=== PATIENT | female | born 1990 | race Caucasian/White ===

== ENCOUNTER 2016-06-08 10:13 | Emergency (ER) | payer SELFPAY ==
[2016-06-08 10:37] VITALS: BP 115/84
--- NOTE | 2016-06-08 11:07 | UC ---
Concha Alas Anna, [facility] on 06/08/16 at 1054 . Cardiac HPI - HPI Summary HPI Summary: MD Note Vital signs stable Temp 99. Pulse ox 97. 6/10 chest discomfort. Rare alcohol former smoker. Visit review reveals no heart disease and intermittent evaluation for chest congestion. Pt is on no prescription medications. EKG NSR at 76 bpm without ischemia at 1021. Nurses Note "low grade" fever for past couple weeks, temp was high yesterday. sunday had pressure at base of throat, along with sob. woke up this morning with pain in chest, pain is worse with deep breath or cough. pt states has noticed for past couple wks that she is urinating more frequently even though fluid intake hasn't increased. denies urinary symptoms. In Room Note Patient is a 25 y/o female coming to [facility] [place] presenting with gradual onset of constant, dull CHEST DISCOMFORT that began this morning. The pain does not radiate anywhere, including her jaw or arm. The pain is exacerbated by coughing or deep breaths. She additionally feels SOB and has had an intermittent COUGH, FEVER, and DIAPHORESIS that began four days ago. The symptoms were not alleviated by the use of Mucinex. Her history is significant for GERD, but her current pain is different. Denies n/v/d, abd pain, leg pain. Denies Hx of asthma , blood clots, DVT, PE, or recent travel. She quit smoking two months ago. She was previously smoking 4 cigarettes a day, and PPD for a year before that. Onset: gradual Palliative/Provocative: chest pain Quality: dull Region: left side of sternum Severity: 09/16 Time: constant Associated Sx: cough, SOB Home Rx: Mucinex - History of Current Complaint Chief Complaint: UCChestPain Stated Complaint: CHEST PAIN,SOB Hx Obtained From: Patient, Family/Non Profit Job Titles - accompanied by girlfriend - Allergy/Home Medications Allergies/Adverse Reactions: Allergies Allergy/AdvReac Type Severity Reaction Status Date / Time No Known Allergies Allergy Verified 04/06/16 16:09 Home Medications: Home Medications guaiFENesin ER TAB [Mucinex*] 06/08/16 [History] PMH/Surg Hx/FS Hx/Imm Hx Endocrine History Of: Denies: Diabetes - pre-, Thyroid Disease Cardiovascular History Of: Denies: Cardiac Disorders, Hypertension, Pacemaker/ICD, Myocardial Infarction , Congestive Heart Failure, Atrial Fibrillation, Deep Vein Thrombosis, Bleeding Disorders Respiratory History Of: Denies: COPD, Asthma GI/ History Of: Reports: Gastroesophageal Reflux Denies: Ulcer, Gastrointestinal Bleed, Gall Bladder Disease, Kidney Stones, Diverticulitis, Renal Disease, Urosepsis Neurological History Of: Denies: TIA, CVA, Dementia, Seizures, Migraine Psychological History Of: Denies: Anxiety, Depression, Bipolar Disorder, Schizophrenia, Post Traumatic Stress Disorder Cancer History Of: Denies: Lung Cancer, Colorectal Cancer, Breast Cancer, Prostate Cancer, Cervical Cancer Other History Of: Negative For: HIV, Hepatitis B, Hepatitis C - Surgical History Surgical History: None - Family History Known Family History: Negative: Cardiac Disease, Hypertension, Diabetes - Social History Alcohol Use: Rare Substance Use Type: None Smoking Status (MU): Former Smoker Type: Cigarettes When Did the Patient Quit Smoking/Using Tobacco: 04/02/16 Review of Systems Constitutional: Fever, Other - diaphoresis Skin: Negative Eyes: Negative ENT: Negative Respiratory: Shortness Of Breath, Cough Cardiovascular: Chest Pain Gastrointestinal: Negative Genitourinary: Negative Motor: Negative Neurovascular: Negative Musculoskeletal: Negative Neurological: Negative Psychological: Negative All Other Systems Reviewed And Are Negative: Yes Physical Exam Triage Information Reviewed: Yes Appearance: Well-Appearing, No Pain Distress, Well-Nourished Vital Signs: Initial Vital Signs Temp 99.0 F 06/08/16 10:30 Pulse 77 06/08/16 10:30 Resp 18 06/08/16 10:30 BP 115/84 06/08/16 10:30 Pulse Ox 97 06/08/16 10:30 Vital Signs Reviewed: Yes Eyes: Positive: Conjunctiva Clear ENT: Positive: Hearing grossly normal, Pharynx normal, TMs normal. Negative: Muffled/hoarse voice Neck: Positive: Supple, No Lymphadenopathy Respiratory: Positive: Lungs clear, Normal breath sounds, No respiratory distress, Other: - Mild tenderness to right sternal margin and tenderness of left margin of the sternum greater than the right.. Negative: Chest non-tender Cardiovascular: Positive: RRR, No Murmur, Other: - S1, S2. Negative: Tachycardia Abdomen Description: Positive: Nontender, No Organomegaly, Soft Bowel Sounds: Positive: Present Musculoskeletal: Positive: Strength Intact, No Edema, Other: - MARTINEZ. No swelling or redness of calves. No tendernress. Neurological: Positive: Alert Psychological: Positive: Age Appropriate Behavior Skin: Negative: rashes Diagnostics - EKG Cardiac Rate: NL - 76 bpm Ectopy: None ST Segment: Normal - Assessment/Plan Course Of Treatment: Patient appeared comfortable on physical exam, not SOB or tachycardic. Most consistent with costochondritis. No Hx that would suggest PE or cardiovascular problem. Discussed this diagnosis with the patient and her partner and they voiced understanding and agreement. She was given a one day work note. - Clinical Impression Provider Diagnoses: costochondritis Discharge - Discharge Plan Condition: Stable Disposition: HOME Prescriptions: Ibuprofen TAB* [Motrin TAB* 800 MG] 600 mg PO Q8HR #14 tab Meds/Orders/Equipment: 12 Lead EKG Location: Determined By Patient Patient Education Materials: Costochondritis (ED) Referrals: Kourtney Devlin MD [Primary Care Provider] - Additional Instructions: WE DISCUSSED: You have inflammation of the joints around the sternum. Your EKG was normal. TAKe ibuprofen one pill, four times a day for the next 2 days. THen 2-3 times a day, as needed. Warm moist heat to the area. Go to ED for increased chest pain, new symptoms or shortness of breath. The documentation as recorded by the Concha mcgowan Anna accurately reflects the service I personally performed and the decisions made by , Stephen Self MD.
== END 2016-06-08 11:21 | disposition home or self-care (01) ==
LOC: UCEAST 10:13
DX: M94.0 Chondrocostal junction syndrome [Tietze] (principal); Z87.891 Personal history of nicotine dependence
CPT/HCPCS: 93005; 99212; G0463

== ENCOUNTER 2016-06-10 21:36 | Emergency (ER) | payer SELFPAY ==
--- NOTE | 2016-06-10 22:51 | ED ---
Jose Miguel Alas SooYoung, scribed for Stephen Carey MD on 06/10/16 at 2241 . HPI Chest Pain - HPI Summary HPI Summary: A 25 y/o F presents with worsening CP onset two days ago. Associated sx: SOB. Aggravating factors: deep breaths. She's taken Ibuprofen 800mg two or three times yesterday, and twice today with no relief. - History of Current Complaint Chief Complaint: EDChestWallPain Time Seen by Provider: 06/10/16 22:34 Hx Obtained From: Patient Onset/Duration: Started Days Ago, Still Present Timing: Constant Current Severity: Moderate Pain Intensity: 7 Pain Scale Used: 0-10 Numeric Aggravating Factor(s): Deep Breaths Associated Signs and Symptoms: Positive: Shortness of Breath - Allergy/Home Medications Allergies/Adverse Reactions: Allergies Allergy/AdvReac Type Severity Reaction Status Date / Time No Known Allergies Allergy Verified 04/06/16 16:09 PMH/Surg Hx/FS Hx/Imm Hx Previously Healthy: Yes Endocrine/Hematology History: Denies: Hx Diabetes - pre-, Hx Thyroid Disease Cardiovascular History: Denies: Hx Congestive Heart Failure, Hx Deep Vein Thrombosis, Hx Hypertension , Hx Myocardial Infarction, Hx Pacemaker/ICD Respiratory History: Denies: Hx Asthma, Hx Chronic Obstructive Pulmonary Disease (COPD), Hx Lung Cancer GI History: Denies: Hx Gall Bladder Disease, Hx Gastrointestinal Bleed, Hx Ulcer, Hx Urosepsis History: Reports: Other Problems/Disorders - PCOS Denies: Hx Kidney Stones, Hx Renal Disease Neurological History: Denies: Hx Dementia, Hx Migraine, Hx Seizures, Hx Transient Ischemic Attacks (TIA) Psychiatric History: Denies: Hx Anxiety, Hx Depression, Hx Schizophrenia, Hx Bipolar Disorder Infectious Disease History: No Infectious Disease History: Denies: Hx Clostridium Difficile, Hx Hepatitis, Hx Human Immunodeficiency Virus (HIV), Hx of Known/Suspected MRSA, Hx Shingles, Hx Tuberculosis, Hx Known/ Suspected VRE, Hx Known/Suspected VRSA, History Other Infectious Disease, Traveled Outside the [place] in Last 30 Days - Family History Known Family History: Negative: Cardiac Disease, Hypertension, Diabetes - Social History Occupation: Employed Full-time Lives: Alone Alcohol Use: Rare Hx Substance Use: No Substance Use Type: Reports: None Hx Tobacco Use: Yes Smoking Status (MU): Former Smoker Type: Cigarettes Amount Used/How Often: >1/2 ppd on the patch now Review of Systems Positive: Chest Pain Positive: Shortness Of Breath All Other Systems Reviewed And Are Negative: Yes Physical Exam Triage Information Reviewed: Yes Vital Signs On Initial Exam: Initial Vitals Temp Pulse Resp BP Pulse Ox 99.1 F 83 16 131/64 100 06/10/16 21:44 06/10/16 21:44 06/10/16 21:44 06/10/16 21:44 06/10/16 21:44 Vital Signs Reviewed: Yes Appearance: Positive: Well-Appearing, No Pain Distress Skin: Positive: Warm Head/Face: Positive: Normal Head/Face Inspection Eyes: Positive: DIAMOND ENT: Positive: Hearing grossly normal Neck: Positive: Supple Respiratory/Lung Sounds: Positive: Clear to Auscultation, Breath Sounds Present Cardiovascular: Positive: RRR Abdomen Description: Positive: Nontender, Soft Bowel Sounds: Positive: Present Musculoskeletal: Positive: Strength/ROM Intact Neurological: Positive: Alert, Oriented to Person Place, Time Psychiatric: Positive: Affect/Mood Appropriate Diagnostics - Vital Signs Vital Signs Temp Pulse Resp BP Pulse Ox 06/10/16 21:44 99.1 F 83 16 131/64 100 - Laboratory Lab Statement: Any lab studies that have been ordered have been reviewed, and results considered in the medical decision making process. - Radiology CXR Xray Interpretation: No Acute Changes Radiology Interpretation Completed By: ED Physician - EKG 1 Cardiac Rate: NL EKG Rhythm: Sinus Rhythm EKG Interpretation: no STEMI Re-Evaluation - Re-Evaluation First Eval Change: Improved Chest Pain Course/Dx - Diagnoses Provider Diagnoses: Chest wall pain Discharge - Discharge Plan Condition: Stable Disposition: HOME Patient Education Materials: Chest Wall Pain (ED) Referrals: Kourtney Devlin MD [Primary Care Provider] - 1 Week Additional Instructions: Follow up with your doctor within the week. Please return to the ED with new or worsening symptoms. The documentation as recorded by the Jose Miguel mcgowan SooYoung accurately reflects the service I personally performed and the decisions made by me, Stephen Carey MD.
--- NOTE | 2016-06-10 23:08 | RAD ---
INDICATION: Chest pain. COMPARISON: Comparison is made with prior study from May 03, 2013. TECHNIQUE: Dual-energy PA and lateral views of the chest were obtained. FINDINGS: The heart is within normal limits in size. Mediastinal and hilar contours appear within normal limits. The lungs are clear. No pleural effusion or pneumothorax is seen. IMPRESSION: NO EVIDENCE FOR ACTIVE CARDIOPULMONARY DISEASE.
[2016-06-10 23:25] VITALS: BP 125/72
== END 2016-06-10 23:24 | disposition home or self-care (01) ==
LOC: ED 21:36
DX: R07.89 Other chest pain (principal); R06.02 Shortness of breath; Z87.891 Personal history of nicotine dependence
CPT/HCPCS: 71020; 93005; 99282

== ENCOUNTER 2016-07-04 17:51 | Emergency (ER) | payer SELFPAY ==
[2016-07-04 18:01] VITALS: BP 130/84
[2016-07-04] MEDS ORDERED: Ibuprofen TAB* 400 MG PO ONE (18:11)
--- NOTE | 2016-07-04 18:11 | UC ---
Throat Pain/Nasal Pillo HPI - HPI Summary HPI Summary: complaint of sore throat and fever that started yesterday nasal congestion mild cough intermittent headaches bilateral ear pain took some robitussin and tylenol yesterday denies muscle achiness ,denies N/V/D influenza present in her workplace - History of Current Complaint Chief Complaint: UCRespiratory Stated Complaint: SORE THROAT AND FEVER Time Seen by Provider: 07/04/16 18:04 Hx Obtained From: Patient Hx Last Menstrual Period: 06/13/16 - Allergies/Home Medications Allergies/Adverse Reactions: Allergies Allergy/AdvReac Type Severity Reaction Status Date / Time No Known Allergies Allergy Verified 04/06/16 16:09 PMH/Surg Hx/FS Hx/Imm Hx Previously Healthy: Yes Endocrine History Of: Denies: Diabetes - pre-, Thyroid Disease Cardiovascular History Of: Denies: Cardiac Disorders, Hypertension, Pacemaker/ICD, Myocardial Infarction , Congestive Heart Failure, Atrial Fibrillation, Deep Vein Thrombosis, Bleeding Disorders Respiratory History Of: Denies: COPD, Asthma GI/ History Of: Reports: Gastroesophageal Reflux Denies: Ulcer, Gastrointestinal Bleed, Gall Bladder Disease, Kidney Stones, Diverticulitis, Renal Disease, Urosepsis Neurological History Of: Denies: TIA, CVA, Dementia, Seizures, Migraine Psychological History Of: Denies: Anxiety, Depression, Bipolar Disorder, Schizophrenia, Post Traumatic Stress Disorder Cancer History Of: Denies: Lung Cancer, Colorectal Cancer, Breast Cancer, Prostate Cancer, Cervical Cancer Other History Of: Negative For: HIV, Hepatitis B, Hepatitis C - Surgical History Surgical History: None - Family History Known Family History: Negative: Cardiac Disease, Hypertension, Diabetes - Social History Occupation: Employed Full-time Lives: With Family Alcohol Use: Rare Substance Use Type: None Smoking Status (MU): Former Smoker Type: Cigarettes Amount Used/How Often: >1/2 ppd on the patch now When Did the Patient Quit Smoking/Using Tobacco: 04/02/16 Review of Systems Constitutional: Fever Skin: Negative Eyes: Negative ENT: Sore Throat, Ear Ache, Nasal Discharge Respiratory: Cough Cardiovascular: Negative Gastrointestinal: Negative Genitourinary: Negative Motor: Negative Neurovascular: Negative Musculoskeletal: Negative Neurological: Headache Psychological: Negative All Other Systems Reviewed And Are Negative: Yes Physical Exam Triage Information Reviewed: Yes Appearance: No Pain Distress, Well-Nourished Vital Signs: Initial Vital Signs Temp 99.3 F 07/04/16 17:58 Pulse 96 07/04/16 17:58 Resp 18 07/04/16 17:58 BP 130/84 07/04/16 17:58 Pulse Ox 100 07/04/16 17:58 Vital Signs Reviewed: Yes Eyes: Positive: Conjunctiva Clear ENT: Positive: Pharyngeal erythema, Nasal congestion, TMs normal, Tonsillar swelling, Tonsillar exudate Neck: Positive: No Lymphadenopathy Respiratory: Positive: Lungs clear, Normal breath sounds, No respiratory distress, No accessory muscle use Cardiovascular: Positive: RRR, No Murmur, Pulses Normal Abdomen Description: Positive: Nontender, Soft Bowel Sounds: Positive: Present Musculoskeletal Exam: Normal Neurological: Positive: Alert Psychological Exam: Normal Skin Exam: Normal Throat Pain/Nasal Course/Dx - Differential Dx/Diagnosis Differential Diagnosis/HQI/PQRI: Influenza, Tonsillitis, URI, Other - viral illness Provider Diagnoses: viral pharyngitis Discharge - Discharge Plan Condition: Stable Disposition: HOME Patient Education Materials: Pharyngitis (ED) Forms: *Work Release Referrals: Kourtney Devlin MD [Primary Care Provider] - Additional Instructions: Your blood pressure is pre-hypertensive reading. Please contact your primary care provider within 1 day -4 weeks for further evaluation. PHARYNGITIS (Sore Throat) What is Pharyngitis? The medical name for a sore throat is Pharyngitis. It is caused by an infection or irritation of your throat or tonsils. The infection can be caused by a virus or by bacteria. Not everyone with Pharyngitis needs antibiotics. Antibiotics will not make viral infections better, and they will not help a sore throat caused by irritation. Symptoms May Include: Sore throat Swelling of the glands in the neck Trouble or pain with swallowing Fever Headache Cough Extreme tiredness Ear pain Treatment Recommendations: Gargle every few hours with a solution of 1/4 teaspoon of salt dissolved in 1/ 2 cup of warm water. Drink plenty of warm beverages, like tea with lemon, (with or without honey) and soup. You may eat and drink cold foods and liquids like frozen yogurt, popsicles, and ice water if that makes your throat feel better. The goal is to keep you well hydrated. Use a "cool-mist" vaporizer or humidifier in the room where you spend most of your time. If you get a sore throat often, consider adding an electronic air filter and humidifier to your furnace system. Don't smoke. Do not eat spicy foods. Take medicine exactly as prescribed. If you do not think it is helping, call your healthcare provider. Do not increase how much or how often you take it without getting their OK first. Non-prescription anti-inflammatory medicine like ibuprofen (Motrin, Advil) or naproxen (Aleve) may help lessen the pain. You should not take these medicines if you have had bleeding in your stomach in the past. Acetaminophen ( Tylenol) is another choice of medicine that may help the pain. If pain medicine that makes you tired or sleepy or contains narcotics is prescribed, you should not drink, drive, or participate in any other activities that you need to be clear-headed for. Please keep all medicines out of the reach of children. Do not get in close contact with anyone you know who has a sore throat. Use throat lozenges (Cepostat, Bellevue, etc.) or suck on hard candy for temporary relief of the pain with swallowing. (Do not give to children under age 5.) Call Your Doctor or Return Here IF: Your symptoms do not start to get better within 2 days or you become worse. You have a fever over 101.0 F orally. You cant swallow liquids or saliva. You are drooling. You start to have trouble breathing. You start to have a rash. You start to have a stiff neck. You start to have pain in your chest. You start to have any symptoms that are new or worry you.
== END 2016-07-04 19:04 | disposition home or self-care (01) ==
LOC: UCEAST 17:51
DX: J02.8 Acute pharyngitis due to other specified organisms (principal); B97.89 Other viral agents as the cause of diseases classified elsewhere; R50.9 Fever, unspecified; K21.9 Gastro-esophageal reflux disease without esophagitis; Z87.891 Personal history of nicotine dependence
CPT/HCPCS: 87502; 87651; 99201; A9270-GY; G0463

== ENCOUNTER 2016-09-29 16:28 | Emergency (ER) | payer SELFPAY ==
[2016-09-29 16:39] VITALS: BP 116/67
--- NOTE | 2016-09-29 17:31 | ED ---
Head Injury - HPI Summary HPI Summary: 26F presents with head injury last night from a softball. A softball that was thrown struck the left side of her head. She denies any LOC. She denies any vomiting but admits to nausea. She states her headache is a 10/10 without excredin and then goes to 7/10. She admits to photophobia and blurry vision in left eye. She is not on any blood thinners. - History Of Current Complaint Chief Complaint: EDHeadInjury Stated Complaint: HIT IN HEAD W/SOFTBALL Time Seen by Provider: 09/29/16 16:45 Hx Last Menstrual Period: 06/13/16 Pain Intensity: 0 - Allergies/Home Medications Allergies/Adverse Reactions: Allergies Allergy/AdvReac Type Severity Reaction Status Date / Time No Known Allergies Allergy Verified 09/29/16 16:57 PMH/Surg Hx/FS Hx/Imm Hx Endocrine/Hematology History: Denies: Hx Diabetes - pre-, Hx Thyroid Disease Cardiovascular History: Denies: Hx Congestive Heart Failure, Hx Deep Vein Thrombosis, Hx Hypertension , Hx Myocardial Infarction, Hx Pacemaker/ICD Respiratory History: Denies: Hx Asthma, Hx Chronic Obstructive Pulmonary Disease (COPD), Hx Lung Cancer GI History: Denies: Hx Gall Bladder Disease, Hx Gastrointestinal Bleed, Hx Ulcer, Hx Urosepsis History: Reports: Other Problems/Disorders - PCOS Denies: Hx Kidney Stones, Hx Renal Disease Neurological History: Denies: Hx Dementia, Hx Migraine, Hx Seizures, Hx Transient Ischemic Attacks (TIA) Psychiatric History: Denies: Hx Anxiety, Hx Depression, Hx Schizophrenia, Hx Bipolar Disorder Infectious Disease History: No Infectious Disease History: Denies: Hx Clostridium Difficile, Hx Hepatitis, Hx Human Immunodeficiency Virus (HIV), Hx of Known/Suspected MRSA, Hx Shingles, Hx Tuberculosis, Hx Known/ Suspected VRE, Hx Known/Suspected VRSA, History Other Infectious Disease, Traveled Outside the [place] in Last 30 Days - Family History Known Family History: Negative: Cardiac Disease, Hypertension, Diabetes - Social History Alcohol Use: Rare Hx Substance Use: No Substance Use Type: Reports: None Hx Tobacco Use: Yes Smoking Status (MU): Never Smoked Tobacco Type: Cigarettes Amount Used/How Often: >1/2 ppd on the patch now Review of Systems Negative: Fever Negative: Chest Pain Negative: Shortness Of Breath Positive: Nausea. Negative: Vomiting Positive: Headache All Other Systems Reviewed And Are Negative: Yes Physical Exam Triage Information Reviewed: Yes Vital Signs On Initial Exam: Initial Vitals Temp Pulse Resp BP Pulse Ox 98.4 F 80 17 116/67 98 09/29/16 16:36 09/29/16 16:36 09/29/16 16:36 09/29/16 16:36 09/29/16 16:36 Vital Signs Reviewed: Yes Appearance: Positive: Well-Appearing Skin: Positive: Warm, Dry Head/Face: Positive: Normal Head/Face Inspection, Other - no step off, racoon eyes, rockwell sign Eyes: Positive: Normal, EOMI, DIAMOND, Conjunctiva Clear ENT: Positive: Normal ENT inspection, Pharynx normal, TMs normal Respiratory/Lung Sounds: Positive: Clear to Auscultation, Breath Sounds Present Cardiovascular: Positive: Normal, RRR Neurological: Positive: Sensory/Motor Intact, Alert, Oriented to Person Place, Time, CN Intact II-III, Heel to Toe, Finger to Nose - [place] Coma Scale Best Eye Response: 4 - Spontaneous Best Motor Response: 6 - Obeys Commands Best Verbal Response: 5 - Oriented Diagnostics - Vital Signs Vital Signs Temp Pulse Resp BP Pulse Ox 09/29/16 16:52 98.4 F 80 16 116/67 99 09/29/16 16:36 98.4 F 80 17 116/67 98 - Laboratory Lab Statement: Any lab studies that have been ordered have been reviewed, and results considered in the medical decision making process. - CT brain CT Interpretation: No Acute Changes - IMPRESSION: NEGATIVE EXAMINATION CT Interpretation Completed By: Radiologist Head Injury Course/Dx Course Of Treatment: 26F presents with head injury last night from a softball. She denies any LOC. She denies any vomiting but admits to nausea. She states her headache is a 10/10 without excredin and then goes to 7/10. normal neuro exam. discussed with patient and patient would like CT which is normal. gave zofran for nausea and told to follow up with primary. patient understands and agrees with plan - Diagnoses Differential Diagnosis/HQI/PQRI: Concussion Without LOC, Contusion, Intracranial Bleed Provider Diagnoses: Head injury Discharge - Discharge Plan Condition: Good Disposition: HOME Prescriptions: Ondansetron ODT TAB* [Zofran 4 MG Odt TAB*] 4 mg PO Q6H PRN #20 tab.odt PRN Reason: Nausea Patient Education Materials: Head Injury (ED) Referrals: Kourtney Devlin MD [Primary Care Provider] - Additional Instructions: Place ice on area as needed Take Tylenol or ibuprofen for headache every 6 hours Take zofran every 6 hours as needed for nausea Follow up with primary within 5 days Return to ED if develop any new or worsening symptoms
--- NOTE | 2016-09-29 17:36 | RAD ---
INDICATION: Intracranial injury COMPARISON: None TECHNIQUE: Noncontrast axial source images were acquired from the skull base to the vertex. FINDINGS: Ventricles/sulci: The ventricles and cisterns are normal in size and configuration for age. Brain parenchyma: There is no focal parenchymal finding, evidence of intracranial mass, or intracranial mass effect. Intracranial hemorrhage:None. Extra-axial spaces: There are no abnormal extra axial fluid collections or evidence of extra-axial mass. Calvarium: There is no calvarial fracture or other calvarial abnormality. Scalp: There is no evidence of scalp or extracalvarial soft tissue abnormality. Paranasal sinuses/mastoid: The paranasal sinuses and mastoid air cells are clear. Other: None. IMPRESSION: NEGATIVE EXAMINATION
[2016-09-29] MEDS ORDERED: Ondansetron ODT TAB* 4 MG PO ONE (17:39)
== END 2016-09-29 17:50 | disposition home or self-care (01) ==
LOC: ED 16:28
DX: S09.90XA Unspecified injury of head, initial encounter (principal); R51 Headache; R11.0 Nausea; W21.07XA Struck by softball, initial encounter; Y93.64 Activity, baseball; Y92.9 Unspecified place or not applicable; Y99.9 Unspecified external cause status
CPT/HCPCS: 70450; 99281; A9270-GY

== ENCOUNTER 2016-10-19 17:00 | Emergency (ER) | payer SELFPAY ==
[2016-10-19 18:02] LABS: Hematocrit 39 % (35-47); Hemoglobin 12.9 g/dl (12.0-16.0); Mean Corpuscular HGB Conc 33 g/dl (31-36); Mean Corpuscular Hemoglobin 28 pg (27-31); Mean Corpuscular Volume 84 fL (80-97); Mean Platelet Volume 8 um3 (7.4-10.4); Red Blood Count 4.65 10^6/ul (4.0-5.4); Red Cell Distribution Width 13 % (10.5-15); White Blood Count 14.1 10^3/ul (3.5-10.8)
[2016-10-19 18:20] LABS: ALT 19 U/L (7-52); AST 16 U/L (13-39); Albumin 4.2 g/dL (3.2-5.2); Alkaline Phosphatase 55 U/L (34-104); Anion Gap 6 mmol/L (2-11); Blood Urea Nitrogen 12 mg/dL (6-24); CO2 Carbon Dioxide 25 mmol/L (22-32); Calcium 9.6 mg/dL (8.6-10.3); Chloride 105 mmol/L (101-111); EGFR African American 113.3 (>60); EGFR Non-African American 88.1 (>60); Globulin 3.2 g/dL (2-4); Glucose 123 mg/dL (70-100); Potassium 3.9 mmol/L (3.5-5.0); Sodium 136 mmol/L (133-145); Total Protein 7.4 g/dL (6.4-8.9)
--- NOTE | 2016-10-20 00:01 | ED ---
Karri Alas Salem, scribed for Stephen Carey MD on 10/19/16 at 2135 . GI/ HPI - HPI Summary HPI Summary: Patient is a 26 y/o F who presents to the ED with bright red rectal bleeding and abd cramping. She describes episodes in which she feels like blood is pooling in her colon followed by the urge to make a BM in excretion of blood with clotting. Pt states that she does not have a PCP because she does not have insurance, but states that her last physical exam was approximately 1 year ago. Sx is not aggravated or modified with anything. - History of Current Complaint Chief Complaint: EDGIBleed Time Seen by Provider: 10/19/16 21:28 Stated Complaint: RECTAL BLEEDING Hx Obtained From: Patient Onset/Duration: Atraumatic, Still Present Timing: Intermittent Severity: Moderate Current Severity: Moderate Vaginal Bleeding Description: Bright Red Pain Intensity: 0 Location of Pain: Diffuse Pain Characteristics: Cramping Associated Signs and Symptoms: Positive: Bright Red Blood w/Stool, Blood w/Stool , Abdominal Pain Aggravating Factor(s): Nothing Alleviating Factor(s): Nothing - Allergy/Home Medications Allergies/Adverse Reactions: Allergies Allergy/AdvReac Type Severity Reaction Status Date / Time No Known Allergies Allergy Verified 09/29/16 16:57 PMH/Surg Hx/FS Hx/Imm Hx Endocrine/Hematology History: Denies: Hx Diabetes - pre-, Hx Thyroid Disease Cardiovascular History: Denies: Hx Congestive Heart Failure, Hx Deep Vein Thrombosis, Hx Hypertension , Hx Myocardial Infarction, Hx Pacemaker/ICD Respiratory History: Denies: Hx Asthma, Hx Chronic Obstructive Pulmonary Disease (COPD), Hx Lung Cancer GI History: Denies: Hx Gall Bladder Disease, Hx Gastrointestinal Bleed, Hx Ulcer, Hx Urosepsis History: Reports: Other Problems/Disorders - PCOS Denies: Hx Kidney Stones, Hx Renal Disease Neurological History: Denies: Hx Dementia, Hx Migraine, Hx Seizures, Hx Transient Ischemic Attacks (TIA) Psychiatric History: Denies: Hx Anxiety, Hx Depression, Hx Schizophrenia, Hx Bipolar Disorder Infectious Disease History: No Infectious Disease History: Denies: Hx Clostridium Difficile, Hx Hepatitis, Hx Human Immunodeficiency Virus (HIV), Hx of Known/Suspected MRSA, Hx Shingles, Hx Tuberculosis, Hx Known/ Suspected VRE, Hx Known/Suspected VRSA, History Other Infectious Disease, Traveled Outside the [place] in Last 30 Days - Family History Known Family History: Negative: Cardiac Disease, Hypertension, Diabetes - Social History Alcohol Use: Rare Hx Substance Use: No Substance Use Type: Reports: None Hx Tobacco Use: Yes Smoking Status (MU): Never Smoked Tobacco Type: Cigarettes Amount Used/How Often: >1/2 ppd on the patch now Review of Systems Negative: Fever Positive: Abdominal Pain Positive: other - Rectal bleeding. All Other Systems Reviewed And Are Negative: Yes Physical Exam Triage Information Reviewed: Yes Vital Signs On Initial Exam: Initial Vitals Temp Pulse Resp BP Pulse Ox 97.5 F 84 16 152/81 98 10/19/16 17:03 10/19/16 17:03 10/19/16 17:03 10/19/16 17:03 10/19/16 17:03 Vital Signs Reviewed: Yes Appearance: Positive: Well-Appearing, No Pain Distress Skin: Positive: Warm Head/Face: Positive: Normal Head/Face Inspection Eyes: Positive: DIAMOND ENT: Positive: Hearing grossly normal Neck: Positive: Supple, Nontender Respiratory/Lung Sounds: Positive: Breath Sounds Present Cardiovascular: Positive: RRR Abdomen Description: Positive: Nontender, Soft Bowel Sounds: Positive: Present Musculoskeletal: Positive: Strength/ROM Intact Neurological: Positive: Alert, Oriented to Person Place, Time - [place] Coma Scale Coma Scale Total: 15 Diagnostics - Vital Signs Vital Signs Temp Pulse Resp BP Pulse Ox 10/19/16 21:22 99 F 71 16 111/72 96 10/19/16 21:00 97.4 F 77 124/77 100 10/19/16 19:25 98.3 F 72 119/72 98 10/19/16 18:17 99.1 F 87 20 111/74 98 10/19/16 17:03 97.5 F 84 16 152/81 98 - Laboratory Lab Results: Lab Results 10/19/16 10/19/16 10/19/16 Range/Units 17:55 17:55 17:55 WBC 14.1 H (3.5-10.8) 10^3/ul RBC 4.65 (4.0-5.4) 10^6/ul Hgb 12.9 (12.0-16.0) g/dl Hct 39 (35-47) % MCV 84 (80-97) fL MCH 28 (27-31) pg MCHC 33 (31-36) g/dl RDW 13 (10.5-15) % Plt Count 331 (150-450) 10^3/ul MPV 8 (7.4-10.4) um3 INR (Anticoag Therapy) 0.96 (0.89-1.11) Sodium 136 (133-145) mmol/L Potassium 3.9 (3.5-5.0) mmol/L Chloride 105 (101-111) mmol/L Carbon Dioxide 25 (22-32) mmol/L Anion Gap 6 (2-11) mmol/L BUN 12 (6-24) mg/dL Creatinine 0.80 (0.51-0.95) mg/dL Est GFR ( Amer) 113.3 (>60) Est GFR (Non-Af Amer) 88.1 (>60) BUN/Creatinine Ratio 15.0 (8-20) Glucose 123 H (70-100) mg/dL Calcium 9.6 (8.6-10.3) mg/dL Total Bilirubin 0.30 (0.2-1.0) mg/dL AST 16 (13-39) U/L ALT 19 (7-52) U/L Alkaline Phosphatase 55 (34-104) U/L Total Protein 7.4 (6.4-8.9) g/dL Albumin 4.2 (3.2-5.2) g/dL Globulin 3.2 (2-4) g/dL Albumin/Globulin Ratio 1.3 (1-3) Beta HCG, Quant < 0.60 mIU/mL Blood Type Antibody Screen 10/19/16 Range/Units 17:55 WBC (3.5-10.8) 10^3/ul RBC (4.0-5.4) 10^6/ul Hgb (12.0-16.0) g/dl Hct (35-47) % MCV (80-97) fL MCH (27-31) pg MCHC (31-36) g/dl RDW (10.5-15) % Plt Count (150-450) 10^3/ul MPV (7.4-10.4) um3 INR (Anticoag Therapy) (0.89-1.11) Sodium (133-145) mmol/L Potassium (3.5-5.0) mmol/L Chloride (101-111) mmol/L Carbon Dioxide (22-32) mmol/L Anion Gap (2-11) mmol/L BUN (6-24) mg/dL Creatinine (0.51-0.95) mg/dL Est GFR ( Amer) (>60) Est GFR (Non-Af Amer) (>60) BUN/Creatinine Ratio (8-20) Glucose (70-100) mg/dL Calcium (8.6-10.3) mg/dL Total Bilirubin (0.2-1.0) mg/dL AST (13-39) U/L ALT (7-52) U/L Alkaline Phosphatase (34-104) U/L Total Protein (6.4-8.9) g/dL Albumin (3.2-5.2) g/dL Globulin (2-4) g/dL Albumin/Globulin Ratio (1-3) Beta HCG, Quant mIU/mL Blood Type A Positive Antibody Screen Negative Result Diagrams: 10/19/16 17:55 10/19/16 17:55 Lab Statement: Any lab studies that have been ordered have been reviewed, and results considered in the medical decision making process. - CT Abd/pelvis CT Interpretation Completed By: Radiologist - Impression: Stable exam without evidence of acute pathology. Re-Evaluation - Re-Evaluation First Eval Change: Improved - results d/w pt GIGU Course/Dx - Course Course Of Treatment: 26 y/o F presents with bright red rectal bleeding with clotting with abd cramping. Sx is not aggravated or modified with anything. CT a /p shows, per radiology, impression: Stable exam without evidence of acute pathology. Pt will be DC'd to follow up with PCP. - Diagnoses Provider Diagnoses: Abdominal pain Discharge - Discharge Plan Condition: Stable Disposition: HOME Patient Education Materials: Abdominal Pain (ED) Forms: *Work Release Referrals: Kourtney Devlin MD [Primary Care Provider] - Additional Instructions: Please follow up with your primary care provider. The documentation as recorded by the Karri mcgowan Salem accurately reflects the service I personally performed and the decisions made by , Stephen Carey MD.
[2016-10-20] MEDS ORDERED: Iohexol 300* (CONTRAST) 10 ML SDV IV ONE (00:04)
[2016-10-20 00:35] VITALS: BP 100/58
--- NOTE | 2016-10-20 10:23 | RAD ---
INDICATION: Pelvic pain, abdominal pain. CONTRAST: Administered 117.0 ml of OMNIPAQUE 300 mgi/ml CT of the abdomen and pelvis was performed after oral and IV contrast administration. Coronal and sagittal reconstructed images were obtained. The lung bases demonstrate no pleural fluid, nodules or masses. Heart is of normal size without evidence of pericardial effusion. Liver is normal in size. No focal lesions or intrahepatic ductal dilatation noted. Common duct is not dilated. The pancreas demonstrates no mass or pancreatic duct dilatation. The spleen is normal in size. No adrenal masses are noted. The kidneys demonstrate symmetric nephrograms without focal lesions. No retroperitoneal lymphadenopathy is noted. No dilated loops of bowel are noted. The appendix is normal. The uterus and ovaries are unremarkable. No free fluid is identified. No hernias are noted. The bony structures are grossly unremarkable. IMPRESSION: No abnormal masses or fluid collections are identified.
== END 2016-10-20 01:20 | disposition home or self-care (01) ==
LOC: ED 17:00
DX: R10.9 Unspecified abdominal pain (principal); K92.1 Melena
CPT/HCPCS: 36415; 74177; 80053; 84702; 85027; 85610; 86850; 86900; 86901; 99282; Q9967

== ENCOUNTER 2016-11-11 19:04 | Emergency (ER) | payer OTHER ==
[2016-11-11 19:20] VITALS: BP 118/70
[2016-11-11] MEDS ORDERED: oxyCODONE/Acetamin 5/325 MG* TAB PO ONE (19:29)
--- NOTE | 2016-11-11 20:01 | RAD ---
Indication: LEFT knee pain. Unable to bear weight. Comparison: September 17, 2015 radiographs. Technique: LEFT knee: AP, tunnel, crosstable lateral, sunrise views. Report: Negative for joint effusion, fracture, or malalignment. Preserved joint spaces. No appreciable arthropathic change evident. Unremarkable soft tissue contours. IMPRESSION: Negative radiographic exam of the LEFT knee.
--- NOTE | 2016-11-11 20:03 | RAD ---
Indication: LEFT lower leg pain. Fall. Unable to bear weight. Comparison: LEFT knee of the same date. Technique: AP and crosstable lateral views LEFT lower leg. REPORT AND IMPRESSION: Negative for tibia or fibula fracture or malalignment. Lateral and posterior soft tissue swelling.
--- NOTE | 2016-11-11 20:27 | ED ---
Lower Extremity - HPI Summary HPI Summary: 27F presents with abrasion to left lower leg two days ago. She had a softball game and slide to the base causing an abrasion. She has been washing and place neosporin. She denies any fevers. She states there has been some drainage from the abrasion and she is concerned about infection. She states the area has swelled and she is unable to walk on it without pain. She has been taking ibuprofen for pain without relief. - History of Current Complaint Chief Complaint: EDExtremityLower Stated Complaint: LEFT LEG PAIN/SPORTS INJURY Time Seen by Provider: 11/11/16 19:23 Hx Last Menstrual Period: 06/13/16 Pain Intensity: 10 - Allergies/Home Medications Allergies/Adverse Reactions: Allergies Allergy/AdvReac Type Severity Reaction Status Date / Time No Known Allergies Allergy Verified 09/29/16 16:57 PMH/Surg Hx/FS Hx/Imm Hx Endocrine/Hematology History: Denies: Hx Diabetes - pre-, Hx Thyroid Disease Cardiovascular History: Denies: Hx Congestive Heart Failure, Hx Deep Vein Thrombosis, Hx Hypertension , Hx Myocardial Infarction, Hx Pacemaker/ICD Respiratory History: Denies: Hx Asthma, Hx Chronic Obstructive Pulmonary Disease (COPD), Hx Lung Cancer GI History: Denies: Hx Gall Bladder Disease, Hx Gastrointestinal Bleed, Hx Ulcer, Hx Urosepsis History: Reports: Other Problems/Disorders - PCOS Denies: Hx Dialysis, Hx Kidney Stones, Hx Renal Disease Neurological History: Denies: Hx Dementia, Hx Migraine, Hx Seizures, Hx Transient Ischemic Attacks (TIA) Psychiatric History: Denies: Hx Anxiety, Hx Depression, Hx Schizophrenia, Hx Bipolar Disorder Infectious Disease History: No Infectious Disease History: Denies: Hx Clostridium Difficile, Hx Hepatitis, Hx Human Immunodeficiency Virus (HIV), Hx of Known/Suspected MRSA, Hx Shingles, Hx Tuberculosis, Hx Known/ Suspected VRE, Hx Known/Suspected VRSA, History Other Infectious Disease, Traveled Outside the [place] in Last 30 Days - Family History Known Family History: Negative: Cardiac Disease, Hypertension, Diabetes - Social History Alcohol Use: Rare Hx Substance Use: No Substance Use Type: Reports: None Hx Tobacco Use: Yes Smoking Status (MU): Never Smoked Tobacco Type: Cigarettes Amount Used/How Often: >1/2 ppd on the patch now Review of Systems Negative: Fever Negative: Chest Pain Negative: Shortness Of Breath Positive: Myalgia - left leg Positive: Other - abrasion All Other Systems Reviewed And Are Negative: Yes Physical Exam Triage Information Reviewed: Yes Vital Signs On Initial Exam: Initial Vitals Temp Pulse Resp BP Pulse Ox 98.8 F 93 16 118/70 98 11/11/16 19:18 11/11/16 19:18 11/11/16 19:18 11/11/16 19:18 11/11/16 19:18 Vital Signs Reviewed: Yes Appearance: Positive: Well-Appearing Skin: Positive: Warm, Dry, Other - large abrasion to left buchanan with no erythema or warmth to touch Head/Face: Positive: Normal Head/Face Inspection Eyes: Positive: Normal, Conjunctiva Clear Respiratory/Lung Sounds: Positive: Clear to Auscultation, Breath Sounds Present Cardiovascular: Positive: Normal, RRR Musculoskeletal: Positive: Strength/ROM Intact - left knee and ankle, Edema Left - leg, Other - good pulses, capillary refill<2 secs, Diagnostics - Vital Signs Vital Signs Temp Pulse Resp BP Pulse Ox 11/11/16 19:50 98.8 F 93 16 118/70 98 11/11/16 19:49 18 11/11/16 19:18 98.8 F 93 16 118/70 98 - Laboratory Lab Statement: Any lab studies that have been ordered have been reviewed, and results considered in the medical decision making process. Lower Extremity Course/Dx - Course Course Of Treatment: 27F presents with abrasion to left lower leg two days ago. She had a softball game and slide to the base causing an abrasion. She has been washing and place neosporin. She denies any fevers. She states there has been some drainage from the abrasion and she is concerned about infection. She states the area has swelled and she is unable to walk on it without pain. She has been taking ibuprofen for pain without relief. on exam healing abrasion seen with no evidence of infection with no spreading redness. got xray normal. will give keflex to prevent infection but explained that it is not infected at moment and to continue cleaning it. patient understands and agrees with plan. - Diagnoses Differential Diagnosis/HQI/PQRI: Positive: Cellulitis, Fracture (Closed), Other - abrasion Provider Diagnoses: Abrasion of left lower leg Discharge - Discharge Plan Condition: Good Disposition: HOME Prescriptions: Cephalexin SUSP* [Keflex SUSP 250 MG/5 ML*] 500 mg PO BID #1 oral.susp Patient Education Materials: Abrasion (ED) Referrals: Kourtney Devlin MD [Primary Care Provider] - Additional Instructions: Clean with soap and water and place neosporin on area Place ice on area The area does not appear infected currently. will add keflex 10ml (2 teaspoon) twice a day for 7 days as prophylaxis Take Tylenol or ibuprofen for pain every 6 hours Return to ED if develop fever, redness spreads after two days on antibiotics, or any new or worsening symptoms
== END 2016-11-11 20:38 | disposition home or self-care (01) ==
LOC: ED 19:04
DX: S80.812A Abrasion, left lower leg, initial encounter (principal); M79.1 Myalgia; X58.XXXA Exposure to other specified factors, initial encounter; Y93.64 Activity, baseball; Y92.9 Unspecified place or not applicable
CPT/HCPCS: 99282; A9270-GY

== ENCOUNTER 2016-11-15 15:36 | Emergency (ER) | payer OTHER ==
[2016-11-15 15:43] VITALS: BP 132/76
--- NOTE | 2016-11-15 16:08 | UC ---
UC General HPI - HPI Summary HPI Summary: complaint of left leg pain that started last week seen in the ED sunday and was told no fractures and no infection since sunday leg has been swollen and exudate has been coming out of abrasion cleaning abrasion daily denies fever and chills - History of Current Complaint Chief Complaint: UCWounds Stated Complaint: LEG WOUND Time Seen by Provider: 11/15/16 16:02 Hx Obtained From: Patient Hx Last Menstrual Period: 11/08/16 - Allergy/Home Medications Allergies/Adverse Reactions: Allergies Allergy/AdvReac Type Severity Reaction Status Date / Time No Known Allergies Allergy Verified 11/15/16 15:43 PMH/Surg Hx/FS Hx/Imm Hx Previously Healthy: Yes Other History Of: Negative For: HIV, Hepatitis B, Hepatitis C - Surgical History Surgical History: None - Family History Known Family History: Negative: Cardiac Disease, Hypertension, Diabetes - Social History Occupation: Employed Full-time Lives: With Family Alcohol Use: Rare Substance Use Type: None Smoking Status (MU): Never Smoked Tobacco Type: Cigarettes Amount Used/How Often: >1/2 ppd on the patch now When Did the Patient Quit Smoking/Using Tobacco: 04/02/16 Review of Systems Constitutional: Negative Skin: Other - abrasion Eyes: Negative ENT: Negative Respiratory: Negative Cardiovascular: Negative Gastrointestinal: Negative Genitourinary: Negative Motor: Negative Neurovascular: Negative Musculoskeletal: Negative Neurological: Negative Psychological: Negative All Other Systems Reviewed And Are Negative: Yes Physical Exam Triage Information Reviewed: Yes Appearance: No Pain Distress, Well-Nourished Vital Signs: Initial Vital Signs Temp 99.1 F 11/15/16 15:39 Pulse 86 11/15/16 15:39 Resp 20 11/15/16 15:39 BP 132/76 11/15/16 15:39 Pulse Ox 100 11/15/16 15:39 Vital Signs Reviewed: Yes Eyes: Positive: Conjunctiva Clear ENT: Positive: Pharynx normal, TMs normal Neck: Positive: No Lymphadenopathy Respiratory: Positive: Lungs clear, Normal breath sounds, No respiratory distress Cardiovascular: Positive: RRR, No Murmur, Pulses Normal, Brisk Capillary Refill Abdomen Description: Positive: Nontender, Soft Bowel Sounds: Positive: Present Musculoskeletal: Positive: Other: - LLE- tendernessand edema lateral side on ankle- pain with inversion, point tenderness in 5th metatarsal, Full ROM dorsi/ plantar flexion, inversion & eversion. [place] test negative.no step off in achilles tendon Neurological: Positive: Alert Psychological Exam: Normal Skin Exam: Normal Skin: Positive: Other - Left lowr leg with 12x20 cm area of erythmea sourrounding abrasion Course/Dx - Differential Dx - Multi-Symptom Provider Diagnoses: abrasion with cellulitis. left ankle sprain Discharge - Discharge Plan Condition: Stable Disposition: HOME Prescriptions: Cephalexin SUSP* [Keflex SUSP 250 MG/5 ML*] 500 mg PO TID #210 ml Patient Education Materials: Cellulitis (ED), Ankle Sprain (ED) Referrals: Kourtney Devlin MD [Primary Care Provider] - Additional Instructions: ANKLE SPRAIN What is an Ankle Sprain? An ankle sprain is a partial or complete tearing of the ligaments that support the ankle joint. Most ankle sprains affect the ligaments on the outside of the joint. X-rays will not show ligament injury and are often not needed for simple sprains. Symptoms Might Include: Pain in your ankle, foot, or lower leg area Bruising and/or Swelling Possible deformity (bones not lined up as usual) Treatment Recommendations: You should prop your foot up above the level of your heart for the first 24 to 48 hours. This helps cut down on the pain and swelling. You should put an ice pack wrapped in a towel on the injured area for 15 to 20 minutes every 2 to 3 hours when you are awake for the first 2 to 3 days. A compression dressing, like a Velcro splint or Antonio wrap, will help give support and cut down on swelling. If the wrap is too tight, it may cause numbness, tingling, paleness, or a cool feeling. If this happens, the wrap should be taken off and put back on looser. Crutches should be used if there is any pain when you put your weight on your foot. You usually only need to use crutches for the first few days. If you have a more severe sprain you might need to use them longer. As the pain gets better , try to walk without the crutches a little at a time until you can walk without any pain. When your sprain starts to get better you should start exercising. Sit with your ankle off the ground and move it around in all directions 4 to 6 times a day as long as it is not painful. When you can walk without crutches, slowly start to increase your activity by walking short distances. Remember not to overdo it. It may take 3 to 4 weeks to completely get better, even for a mild sprain. It can take much longer for more severe sprains. More severe sprains will need a splint. You will need to see a healthcare provider again in the next 2 to 3 days. Ejks-lar-bfpbrby anti-inflammatory medicine like ibuprofen (Motrin, Advil) or naproxen (Aleve) may help with both the pain and the swelling in your joints. You should not take these medicines if you have a history of bleeding in your stomach. Call Your Doctor or Return Here IF: You have a lot more pain or swelling. If the pain is not getting better in 3 days. If you start to have numbness or tingling in your foot or ankle. If the injured area starts to feel cool to the touch or is pale or bluish in color. If you start to have any other symptoms that worry you. Please start antibiotic as directed Increase fluids and rest Take acetaminophen or ibuprofen for fever or pain Please review your discharge instructions. If your symptoms do not improve please call your primary care provider or return to urgent care.
--- NOTE | 2016-11-15 17:09 | RAD ---
INDICATION: Left ankle pain 6 days after sliding into third base COMPARISON: None. TECHNIQUE: 3 views of the left ankle were obtained. FINDINGS: There is bimalleolar soft tissue swelling slightly greater overlying the fibular malleolus. The well corticated bones exhibit normal alignment. Joint spaces appear maintained. No fracture is seen. IMPRESSION: LEFT ANKLE SOFT TISSUE SWELLING WITHOUT UNDERLYING FRACTURE OR DISLOCATION. If the patient's symptoms persist, follow-up imaging is recommended.
== END 2016-11-15 17:35 | disposition home or self-care (01) ==
LOC: UCEAST 15:36
DX: S80.812A Abrasion, left lower leg, initial encounter (principal); L03.116 Cellulitis of left lower limb; F17.290 Nicotine dependence, other tobacco product, uncomplicated; S93.402A Sprain of unspecified ligament of left ankle, initial encounter; X58.XXXA Exposure to other specified factors, initial encounter
CPT/HCPCS: 99213; G0463

== ENCOUNTER 2016-12-18 16:43 | Emergency (ER) | payer SELFPAY ==
--- NOTE | 2016-12-18 18:09 | RAD ---
INDICATION: Chest pain COMPARISON: None TECHNIQUE: PA and lateral dual-energy views were obtained. FINDINGS: Bones/Soft Tissues: There are no acute bony findings. Cardiomediastinal: The cardiomediastinal silhouette is normal. Lungs: There are no infiltrates. Pleura: There are no pleural effusions. Other: None IMPRESSION: NO ACTIVE DISEASE.
[2016-12-18 18:14] LABS: Hematocrit 40 % (35-47); Hemoglobin 13.2 g/dl (12.0-16.0); Mean Corpuscular HGB Conc 33 g/dl (31-36); Mean Corpuscular Hemoglobin 27 pg (27-31); Mean Corpuscular Volume 82 fL (80-97); Mean Platelet Volume 8 um3 (7.4-10.4); Red Cell Distribution Width 13 % (10.5-15); White Blood Count 11.5 10^3/ul (3.5-10.8)
[2016-12-18 18:32] LABS: Albumin 4.2 g/dL (3.2-5.2); BUN/Creatinine Ratio 8.6 (8-20); C Reactive Protein 4.72 mg/L (< 5.00); Calcium 9.4 mg/dL (8.6-10.3); EGFR African American 132.2 (>60); EGFR Non-African American 102.8 (>60); Potassium 3.6 mmol/L (3.5-5.0); Total Bilirubin 0.3 mg/dL (0.2-1.0); Total Protein 7.2 g/dL (6.4-8.9)
[2016-12-18 19:10] LABS: Urine Bilirubin Negative (Negative); Urine Glucose Negative (Negative); Urine Nitrite Negative (Negative)
[2016-12-18 19:25] VITALS: BP 110/75
--- NOTE | 2016-12-18 22:33 | ED ---
Biju Alas Thomas, scribed for Ja Puga MD on 12/18/16 at 1731 . HPI Chest Pain - HPI Summary HPI Summary: The pt is a 26 y/o F accompanied by her girlfriend who c/o upper sternal CP that began today when she woke up. She rates the pain 10/10. The pain is aggravated by deep breaths and is alleviated by nothing. 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 Pt additionally c/o fever (Tmax 101.7 at home ), diaphoresis, and hotness to the touch. Pt denies a cough, urinary symptoms, diarrhea, constipation, and chest congestion. She is not on any daily medications. PMHx: prediabetes, PCOS. PSHx: none. SHx: former smoker, rare alcohol use, no illicit drug use. - History of Current Complaint Chief Complaint: EDChestPainROMI Time Seen by Provider: 12/18/16 17:25 Hx Obtained From: Patient, Family/Dairy Scientist - patient's girlfriend his in the room Hx Last Menstrual Period: 11/08/16 Onset/Duration: Started Hours Ago - onset this AM, Still Present Timing: Constant Current Severity: Severe Pain Intensity: 10 Pain Scale Used: 0-10 Numeric Chest Pain Location: Upper Sternal Chest Pain Radiates: No Aggravating Factor(s): Deep Breaths Alleviating Factor(s): Nothing Associated Signs and Symptoms: Positive: Chest Pain, Fever - Tmax 101.7 at home but afebrile in the ED, Diaphoresis. Negative: Cough, Other: - NEG: urinary symtpoms, diarrhea, constipation, chest congestion - Allergy/Home Medications Allergies/Adverse Reactions: Allergies Allergy/AdvReac Type Severity Reaction Status Date / Time No Known Allergies Allergy Verified 11/15/16 15:43 PMH/Surg Hx/FS Hx/Imm Hx Previously Healthy: No Endocrine/Hematology History: Reports: Hx Diabetes - pre-diabetes Denies: Hx Thyroid Disease Cardiovascular History: Denies: Hx Congestive Heart Failure, Hx Deep Vein Thrombosis, Hx Hypertension , Hx Myocardial Infarction, Hx Pacemaker/ICD Respiratory History: Denies: Hx Asthma, Hx Chronic Obstructive Pulmonary Disease (COPD), Hx Lung Cancer GI History: Denies: Hx Gall Bladder Disease, Hx Gastrointestinal Bleed, Hx Ulcer, Hx Urosepsis History: Reports: Other Problems/Disorders - PCOS Denies: Hx Dialysis, Hx Kidney Stones, Hx Renal Disease Neurological History: Denies: Hx Dementia, Hx Migraine, Hx Seizures, Hx Transient Ischemic Attacks (TIA) Psychiatric History: Denies: Hx Anxiety, Hx Depression, Hx Schizophrenia, Hx Bipolar Disorder - Surgical History Surgery Procedure, Year, and Place: None Infectious Disease History: No Infectious Disease History: Denies: Hx Clostridium Difficile, Hx Hepatitis, Hx Human Immunodeficiency Virus (HIV), Hx of Known/Suspected MRSA, Hx Shingles, Hx Tuberculosis, Hx Known/ Suspected VRE, Hx Known/Suspected VRSA, History Other Infectious Disease, Traveled Outside the [place] in Last 30 Days - Family History Known Family History: Negative: Cardiac Disease, Hypertension, Diabetes - Social History Alcohol Use: Rare Hx Substance Use: No Substance Use Type: Reports: None Hx Tobacco Use: Yes Smoking Status (MU): Former Smoker Type: Cigarettes Amount Used/How Often: >1/2 ppd on the patch now Review of Systems Positive: Fever - Tmax 101.7 at home but afebrile in the ED, Skin Diaphoresis, Other - POS: hotness to the touch Positive: Chest Pain - upper sternal, onset when she woke today Negative: Cough, Other - NEG: chest congestion Negative: Diarrhea, Other - NEG: constipation Positive: no symptoms reported All Other Systems Reviewed And Are Negative: Yes Physical Exam Triage Information Reviewed: Yes Vital Signs On Initial Exam: Initial Vitals Temp Pulse Resp BP Pulse Ox 99.2 F 81 18 122/83 99 12/18/16 16:48 12/18/16 16:48 12/18/16 16:48 12/18/16 16:48 12/18/16 16:48 Vital Signs Reviewed: Yes Appearance: Positive: Well-Appearing, No Pain Distress, Well-Nourished Skin: Positive: Skin Color Reflects Adequate Perfusion, Dry, Other - She is hot to the touch Head/Face: Positive: Normal Head/Face Inspection Eyes: Positive: Normal ENT: Positive: Normal ENT inspection Neck: Positive: Supple, Nontender Respiratory/Lung Sounds: Positive: Clear to Auscultation, Breath Sounds Present Cardiovascular: Positive: RRR Abdomen Description: Positive: Nontender, Soft Bowel Sounds: Positive: Present Musculoskeletal: Positive: Normal Neurological: Positive: Normal Psychiatric: Positive: Normal, Affect/Mood Appropriate - Saum[place] Coma Scale Coma Scale Total: 15 Diagnostics - Vital Signs Vital Signs Temp Pulse Resp BP Pulse Ox 12/18/16 17:10 99 F 73 17 118/80 97 12/18/16 16:48 99.2 F 81 18 122/83 99 - Laboratory Lab Results: Lab Results 12/18/16 12/18/16 12/18/16 Range/Units 18:05 18:05 18:05 WBC 11.5 H (3.5-10.8) 10^3/ul RBC 4.90 (4.0-5.4) 10^6/ul Hgb 13.2 (12.0-16.0) g/dl Hct 40 (35-47) % MCV 82 (80-97) fL MCH 27 (27-31) pg MCHC 33 (31-36) g/dl RDW 13 (10.5-15) % Plt Count 350 (150-450) 10^3/ul MPV 8 (7.4-10.4) um3 Neut % (Auto) 60.9 (38-83) % Lymph % (Auto) 30.7 (25-47) % Lucas % (Auto) 5.3 (1-9) % Eos % (Auto) 1.9 (0-6) % Baso % (Auto) 1.2 (0-2) % Absolute Neuts (auto) 7.0 (1.5-7.7) 10^3/ul Absolute Lymphs (auto) 3.5 (1.0-4.8) 10^3/ul Absolute Monos (auto) 0.6 (0-0.8) 10^3/ul Absolute Eos (auto) 0.2 (0-0.6) 10^3/ul Absolute Basos (auto) 0.1 (0-0.2) 10^3/ul Absolute Nucleated RBC 0.02 10^3/ul Nucleated RBC % 0.2 D-Dimer, Quantitative < 200 (Less Than 230) ng/mL Sodium 137 (133-145) mmol/L Potassium 3.6 (3.5-5.0) mmol/L Chloride 107 (101-111) mmol/L Carbon Dioxide 23 (22-32) mmol/L Anion Gap 7 (2-11) mmol/L BUN 6 (6-24) mg/dL Creatinine 0.70 (0.51-0.95) mg/dL Est GFR ( Amer) 132.2 (>60) Est GFR (Non-Af Amer) 102.8 (>60) BUN/Creatinine Ratio 8.6 (8-20) Glucose 87 (70-100) mg/dL Calcium 9.4 (8.6-10.3) mg/dL Total Bilirubin 0.30 (0.2-1.0) mg/dL AST 15 (13-39) U/L ALT 22 (7-52) U/L Alkaline Phosphatase 55 (34-104) U/L Troponin I 0.00 (<0.04) ng/mL C-Reactive Protein 4.72 (< 5.00) mg/L Total Protein 7.2 (6.4-8.9) g/dL Albumin 4.2 (3.2-5.2) g/dL Globulin 3.0 (2-4) g/dL Albumin/Globulin Ratio 1.4 (1-3) Urine Color Urine Appearance Urine pH (5-9) Ur Specific [place] (1.010-1.030) Urine Protein (Negative) Urine Ketones (Negative) Urine Blood (Negative) Urine Nitrate (Negative) Urine Bilirubin (Negative) Urine Urobilinogen (Negative) Ur Leukocyte Esterase (Negative) Urine Glucose (Negative) 12/18/16 Range/Units 18:53 WBC (3.5-10.8) 10^3/ul RBC (4.0-5.4) 10^6/ul Hgb (12.0-16.0) g/dl Hct (35-47) % MCV (80-97) fL MCH (27-31) pg MCHC (31-36) g/dl RDW (10.5-15) % Plt Count (150-450) 10^3/ul MPV (7.4-10.4) um3 Neut % (Auto) (38-83) % Lymph % (Auto) (25-47) % Lucas % (Auto) (1-9) % Eos % (Auto) (0-6) % Baso % (Auto) (0-2) % Absolute Neuts (auto) (1.5-7.7) 10^3/ul Absolute Lymphs (auto) (1.0-4.8) 10^3/ul Absolute Monos (auto) (0-0.8) 10^3/ul Absolute Eos (auto) (0-0.6) 10^3/ul Absolute Basos (auto) (0-0.2) 10^3/ul Absolute Nucleated RBC 10^3/ul Nucleated RBC % D-Dimer, Quantitative (Less Than 230) ng/mL Sodium (133-145) mmol/L Potassium (3.5-5.0) mmol/L Chloride (101-111) mmol/L Carbon Dioxide (22-32) mmol/L Anion Gap (2-11) mmol/L BUN (6-24) mg/dL Creatinine (0.51-0.95) mg/dL Est GFR ( Amer) (>60) Est GFR (Non-Af Amer) (>60) BUN/Creatinine Ratio (8-20) Glucose (70-100) mg/dL Calcium (8.6-10.3) mg/dL Total Bilirubin (0.2-1.0) mg/dL AST (13-39) U/L ALT (7-52) U/L Alkaline Phosphatase (34-104) U/L Troponin I (<0.04) ng/mL C-Reactive Protein (< 5.00) mg/L Total Protein (6.4-8.9) g/dL Albumin (3.2-5.2) g/dL Globulin (2-4) g/dL Albumin/Globulin Ratio (1-3) Urine Color Straw Urine Appearance Clear Urine pH 5.0 (5-9) Ur Specific [place] 1.011 (1.010-1.030) Urine Protein Negative (Negative) Urine Ketones Negative (Negative) Urine Blood Negative (Negative) Urine Nitrate Negative (Negative) Urine Bilirubin Negative (Negative) Urine Urobilinogen Negative (Negative) Ur Leukocyte Esterase Negative (Negative) Urine Glucose Negative (Negative) Result Diagrams: 12/18/16 18:05 12/18/16 18:05 Lab Statement: Any lab studies that have been ordered have been reviewed, and results considered in the medical decision making process. - Radiology CXR Xray Interpretation: No Acute Changes - No active disease. ED physician has reviewed this report and agrees. Radiology Interpretation Completed By: Radiologist - EKG 16:54 Cardiac Rate: NL - 79 BPM EKG Interpretation: Sinus rhythm. No STEMI. Re-Evaluation - Re-Evaluation First Eval Re-Evaluation Time: 19:07 Change: Improved Comment: Patient has improved. Chest Pain Course/Dx - Course Course Of Treatment: Ms. Lemon had a negative W/U here for her right-sided CP. - Diagnoses Provider Diagnoses: Chest pain Discharge - Discharge Plan Condition: Stable Disposition: HOME Patient Education Materials: Chest Pain (ED) Forms: *Work Release Referrals: Kourtney Devlin MD [Primary Care Provider] - 5 Days Additional Instructions: Follow up with your doctor within the week. Return to the emergency department for any new or worsening symptoms. The documentation as recorded by the Biju mcgowan Thomas accurately reflects the service I personally performed and the decisions made by , Ja Puga MD.
== END 2016-12-18 19:28 | disposition home or self-care (01) ==
LOC: ED 16:43
DX: R07.9 Chest pain, unspecified (principal); R50.9 Fever, unspecified; Z87.891 Personal history of nicotine dependence
CPT/HCPCS: 36415; 71020; 80053; 81003; 84484; 85025; 85379; 86140; 93005; 99283

== ENCOUNTER 2017-04-18 23:13 | Emergency (ER) | payer SELFPAY ==
[2017-04-18 23:49] LABS: Urine Appearance Cloudy; Urine Blood Negative (Negative); Urine Color Yellow; Urine Ketones Negative (Negative); Urine Protein Negative (Negative); Urine Specific Gravity 1.017 (1.010-1.030); Urine Urobilinogen Negative (Negative)
[2017-04-19 00:22] LABS: ABS Basophils 0.1 10^3/ul (0-0.2); ABS Eosinophils 0.3 10^3/ul (0-0.6); ABS Lymphocytes 4.5 10^3/ul (1.0-4.8); ABS Monocytes 0.9 10^3/ul (0-0.8); ABS Neutrophils 10.4 10^3/ul (1.5-7.7); ABS Nucleated RBC 0 10^3/ul; Eosinophil % 1.7 % (0-6); Hematocrit 38 % (35-47); Hemoglobin 12.8 g/dl (12.0-16.0); Mean Corpuscular HGB Conc 34 g/dl (31-36); Mean Corpuscular Hemoglobin 27 pg (27-31); Mean Corpuscular Volume 82 fL (80-97); Mean Platelet Volume 8 um3 (7.4-10.4); Nucleated Red Blood Cells % 0; Platelet Count 370 10^3/ul (150-450); Red Blood Count 4.68 10^6/ul (4.0-5.4); Red Cell Distribution Width 13 % (10.5-15); White Blood Count 16.2 10^3/ul (3.5-10.8)
[2017-04-19 00:29] LABS: EGFR Non-African American 84.5 (>60)
[2017-04-19] MEDS ORDERED: Al Hydrox/Mg Hydrox/Simet LIQ* 30 ML UDC PO ONE (00:40)
[2017-04-19] MEDS ORDERED: Acetaminophen TAB* 325 MG PO ONE (00:40)
--- NOTE | 2017-04-19 00:46 | ED ---
Abdominal Pain/Female - HPI Summary HPI Summary: Patient presents to the ED with CC of cough, SOB, low grade fevers, sore throat , sinus congestion and dry heaving for 1 week. She notes to some epigastric discomfort and pain to just superior to the umbilicus which was intermittent and now dissipated. Denies any pain in all 4 quadrants. Denies back pain or urinary symptoms. She denies flu shot this year. She has been otherwise healthy and takes no medications. Denies chance of . Denies vaginal discharge or bleeding. Denies abdominal surgeries. - History of Current Complaint Chief Complaint: EDAbdPain Stated Complaint: DRY HEAVING, FEVER Time Seen by Provider: 04/19/17 00:33 Hx Obtained From: Patient Hx Last Menstrual Period: 11/08/16 ?: No Onset/Duration: Sudden Onset Timing: Constant Severity Initially: Moderate Severity Currently: Moderate Pain Intensity: 8 Pain Scale Used: 0-10 Numeric Location: Epigastric Radiates: No Associated Signs and Symptoms: Positive: Diaphoresis, Fever, Cough, Nausea. Negative: Blood in Stool, Urinary Symptoms, Vaginal Bleeding Allergies/Adverse Reactions: Allergies Allergy/AdvReac Type Severity Reaction Status Date / Time No Known Allergies Allergy Verified 11/15/16 15:43 PMH/Surg Hx/FS Hx/Imm Hx Previously Healthy: Yes Endocrine/Hematology History: Reports: Hx Diabetes - pre-diabetes Denies: Hx Thyroid Disease Cardiovascular History: Denies: Hx Congestive Heart Failure, Hx Deep Vein Thrombosis, Hx Hypertension , Hx Myocardial Infarction, Hx Pacemaker/ICD Respiratory History: Denies: Hx Asthma, Hx Chronic Obstructive Pulmonary Disease (COPD), Hx Lung Cancer GI History: Denies: Hx Gall Bladder Disease, Hx Gastrointestinal Bleed, Hx Ulcer, Hx Urosepsis History: Reports: Other Problems/Disorders - PCOS Denies: Hx Dialysis, Hx Kidney Stones, Hx Renal Disease Neurological History: Denies: Hx Dementia, Hx Migraine, Hx Seizures, Hx Transient Ischemic Attacks (TIA) Psychiatric History: Denies: Hx Anxiety, Hx Depression, Hx Schizophrenia, Hx Bipolar Disorder - Surgical History Surgery Procedure, Year, and Place: None - Immunization History Hx Pertussis Vaccination: No Immunizations Up to Date: Unable to Obtain/Confirm Infectious Disease History: No Infectious Disease History: Denies: Hx Clostridium Difficile, Hx Hepatitis, Hx Human Immunodeficiency Virus (HIV), Hx of Known/Suspected MRSA, Hx Shingles, Hx Tuberculosis, Hx Known/ Suspected VRE, Hx Known/Suspected VRSA, History Other Infectious Disease, Traveled Outside the [place] in Last 30 Days - Family History Known Family History: Negative: Cardiac Disease, Hypertension, Diabetes - Social History Occupation: Unemployed Lives: With Family Alcohol Use: Rare Hx Substance Use: No Substance Use Type: Reports: None Hx Tobacco Use: Yes Smoking Status (MU): Former Smoker Type: Cigarettes Amount Used/How Often: >1/2 ppd on the patch now Review of Systems Positive: Fever. Negative: Chills, Fatigue Eyes: Negative Positive: Sore Throat, Nasal Discharge Negative: Palpitations, Chest Pain Positive: Shortness Of Breath, Cough Positive: Abdominal Pain, Vomiting, Nausea. Negative: Diarrhea Positive: no symptoms reported, see HPI Musculoskeletal: Negative Skin: Negative Neurological: Negative All Other Systems Reviewed And Are Negative: Yes Physical Exam Triage Information Reviewed: Yes Vital Signs On Initial Exam: Initial Vitals Temp Pulse Resp BP Pulse Ox 99.1 F 97 16 135/85 99 04/18/17 23:14 04/18/17 23:14 04/18/17 23:14 04/18/17 23:14 04/18/17 23:14 Vital Signs Reviewed: Yes Appearance: Positive: Well-Appearing, Well-Nourished Skin: Positive: Warm, Skin Color Reflects Adequate Perfusion Head/Face: Positive: Normal Head/Face Inspection Eyes: Positive: EOMI, DIAMOND, Conjunctiva Clear Neck: Positive: Supple, No Lymphadenopathy Respiratory/Lung Sounds: Positive: Clear to Auscultation, Breath Sounds Present Cardiovascular: Positive: RRR, Pulses are Symmetrical in both Upper and Lower Extremities Abdomen Description: Positive: Nontender, Soft, Other: - tenderness in the epigastric region Musculoskeletal: Positive: Strength/ROM Intact Neurological: Positive: Speech Normal Psychiatric: Positive: Normal, Affect/Mood Appropriate Diagnostics - Vital Signs Vital Signs Temp Pulse Resp BP Pulse Ox 04/18/17 23:14 99.1 F 97 16 135/85 99 - Laboratory Lab Results: Lab Results 04/18/17 04/18/17 04/18/17 Range/Units 23:30 23:59 23:59 WBC 16.2 H (3.5-10.8) 10^3/ul RBC 4.68 (4.0-5.4) 10^6/ul Hgb 12.8 (12.0-16.0) g/dl Hct 38 (35-47) % MCV 82 (80-97) fL MCH 27 (27-31) pg MCHC 34 (31-36) g/dl RDW 13 (10.5-15) % Plt Count 370 (150-450) 10^3/ul MPV 8 (7.4-10.4) um3 Neut % (Auto) 64.3 (38-83) % Lymph % (Auto) 28.0 (25-47) % [place] % (Auto) 5.3 (1-9) % Eos % (Auto) 1.7 (0-6) % Baso % (Auto) 0.7 (0-2) % Absolute Neuts (auto) 10.4 H (1.5-7.7) 10^3/ul Absolute Lymphs (auto) 4.5 (1.0-4.8) 10^3/ul Absolute Monos (auto) 0.9 H (0-0.8) 10^3/ul Absolute Eos (auto) 0.3 (0-0.6) 10^3/ul Absolute Basos (auto) 0.1 (0-0.2) 10^3/ul Absolute Nucleated RBC 0 10^3/ul Nucleated RBC % 0 Sodium 134 (133-145) mmol/L Potassium 4.2 (3.5-5.0) mmol/L Chloride 104 (101-111) mmol/L Carbon Dioxide 24 (22-32) mmol/L Anion Gap 6 (2-11) mmol/L BUN 10 (6-24) mg/dL Creatinine 0.83 (0.51-0.95) mg/dL Est GFR ( Amer) 108.6 (>60) Est GFR (Non-Af Amer) 84.5 (>60) BUN/Creatinine Ratio 12.0 (8-20) Glucose 113 H (70-100) mg/dL Lactic Acid (0.5-2.0) mmol/L Calcium 9.5 (8.6-10.3) mg/dL Total Bilirubin 0.40 (0.2-1.0) mg/dL AST 17 (13-39) U/L ALT 19 (7-52) U/L Alkaline Phosphatase 54 (34-104) U/L C-Reactive Protein 10.62 H (< 5.00) mg/L Total Protein 7.0 (6.4-8.9) g/dL Albumin 4.0 (3.2-5.2) g/dL Globulin 3.0 (2-4) g/dL Albumin/Globulin Ratio 1.3 (1-3) Lipase 22 (11.0-82.0) U/L Urine Color Yellow Urine Appearance Cloudy Urine pH 7.0 (5-9) Ur Specific [place] 1.017 (1.010-1.030) Urine Protein Negative (Negative) Urine Ketones Negative (Negative) Urine Blood Negative (Negative) Urine Nitrate Negative (Negative) Urine Bilirubin Negative (Negative) Urine Urobilinogen Negative (Negative) Ur Leukocyte Esterase Negative (Negative) Urine Glucose Negative (Negative) 04/18/17 Range/Units 23:59 WBC (3.5-10.8) 10^3/ul RBC (4.0-5.4) 10^6/ul Hgb (12.0-16.0) g/dl Hct (35-47) % MCV (80-97) fL MCH (27-31) pg MCHC (31-36) g/dl RDW (10.5-15) % Plt Count (150-450) 10^3/ul MPV (7.4-10.4) um3 Neut % (Auto) (38-83) % Lymph % (Auto) (25-47) % [place] % (Auto) (1-9) % Eos % (Auto) (0-6) % Baso % (Auto) (0-2) % Absolute Neuts (auto) (1.5-7.7) 10^3/ul Absolute Lymphs (auto) (1.0-4.8) 10^3/ul Absolute Monos (auto) (0-0.8) 10^3/ul Absolute Eos (auto) (0-0.6) 10^3/ul Absolute Basos (auto) (0-0.2) 10^3/ul Absolute Nucleated RBC 10^3/ul Nucleated RBC % Sodium (133-145) mmol/L Potassium (3.5-5.0) mmol/L Chloride (101-111) mmol/L Carbon Dioxide (22-32) mmol/L Anion Gap (2-11) mmol/L BUN (6-24) mg/dL Creatinine (0.51-0.95) mg/dL Est GFR ( Amer) (>60) Est GFR (Non-Af Amer) (>60) BUN/Creatinine Ratio (8-20) Glucose (70-100) mg/dL Lactic Acid 1.1 (0.5-2.0) mmol/L Calcium (8.6-10.3) mg/dL Total Bilirubin (0.2-1.0) mg/dL AST (13-39) U/L ALT (7-52) U/L Alkaline Phosphatase (34-104) U/L C-Reactive Protein (< 5.00) mg/L Total Protein (6.4-8.9) g/dL Albumin (3.2-5.2) g/dL Globulin (2-4) g/dL Albumin/Globulin Ratio (1-3) Lipase (11.0-82.0) U/L Urine Color Urine Appearance Urine pH (5-9) Ur Specific [place] (1.010-1.030) Urine Protein (Negative) Urine Ketones (Negative) Urine Blood (Negative) Urine Nitrate (Negative) Urine Bilirubin (Negative) Urine Urobilinogen (Negative) Ur Leukocyte Esterase (Negative) Urine Glucose (Negative) Result Diagrams: 04/18/17 23:59 04/18/17 23:59 Lab Statement: Any lab studies that have been ordered have been reviewed, and results considered in the medical decision making process. Abdominal Pain Fem Course/Dx - Course Course Of Treatment: Patient is evaluated for epigastric pain, cough, congestion , sinus tenderness and fever. She is afebrile on arrival. She appears in NAD. All VS stable. She is given tylenol and maalox for epigastric discomfort and generalized discomfort. Lungs CTA. Sinus tenderness. Chest xray obtained and WNL. UA Ok. Flu and strep negative. D/t high WBC at 16.7 and fighting a sinus infection for 1 weeks - she is given a short course of antibiotics. She is given an albuterol inhaler for SOB. Other labs and VS stable. She is encouraged to return for any worsening symptoms. I have discussed the possibility of this being a viral illness and to rest, drink plenty of fluids and eat a bland diet at this time. She is Ok with this plan and will defer at this time for any other imaging d/t non-specific 4/10 pain around the umbilicus. She agrees to defer and will return for any changing symptoms. friend at bedside. - Diagnoses Differential Diagnosis: Positive: Constipation Provider Diagnoses: Sinusitis, Cough, Umbilical pain Discharge - Discharge Plan Condition: Stable Disposition: HOME Prescriptions: Azithromycin TAB* [Zithromax TAB (Z-GERI) 250 mg #6 tabs] 250 mg PO DAILY #4 tab Patient Education Materials: Dyspnea (ED) Referrals: Kourtney Devlin MD [Primary Care Provider] - Additional Instructions: If you develop any changing or worsening symptoms - return to the ED Eat a bland diet at this time including breads, crackers, soups, applesauce Rest as much as possible Tylenol 650mg for any discomfort Azithromycin one tab daily for 4 days Albuterol inhaler as needed for any shortness of breath
[2017-04-19] MEDS ORDERED: Albuterol HFA INHALER* 8 gm MDI INH ONE (01:40)
[2017-04-19] MEDS ORDERED: Azithromycin TAB* 250 MG PO ONE (01:40)
[2017-04-19 07:55] VITALS: BP 144/76
--- NOTE | 2017-04-19 07:55 | RAD ---
INDICATION: Fever COMPARISON: Most recent comparison chest x-rays dated December 18, 2016 TECHNIQUE: PA and lateral views of the chest were obtained. FINDINGS: The heart and mediastinum are normal in size and contour. The lungs are grossly clear. There is no evidence of large pleural effusion. Visualized bones are normal for the patient's age. There is no radiographic evidence of free air beneath the diaphragm IMPRESSION: No radiographic evidence of acute cardiopulmonary disease.
== END 2017-04-19 07:00 | disposition home or self-care (01) ==
LOC: ED 23:13
DX: J32.9 Chronic sinusitis, unspecified (principal); R05 Cough; R10.30 Lower abdominal pain, unspecified; J02.9 Acute pharyngitis, unspecified; R50.9 Fever, unspecified; R11.0 Nausea; Z87.891 Personal history of nicotine dependence
CPT/HCPCS: 36415; 71046; 80053; 81003; 83605; 83690; 85025; 86140; 87502; 87651; 99283; A9270-GY

== ENCOUNTER 2017-11-13 07:53 | Emergency (ER) | payer BC ==
[2017-11-13 08:04] VITALS: BP 121/66
--- NOTE | 2017-11-13 08:17 | UC ---
Hand/Wrist HPI - HPI Summary HPI Summary: Progressive R dorsal wrist and midforearm pain. several days (since Sunday). Progresively wors. Scheduled fro ultrasound tomrorwo, but hurt too much today, wants checked out. Has pcp, but pcp is leaving as such, not sure who new pcp is. Pain radiates from the forearm, up elbow to the shoulder - History Of Current Complaint Chief Complaint: UCUpperExtremity Stated Complaint: ARM PAIN Hx Last Menstrual Period: 11/06/2017 Pain Intensity: 5 - Allergies/Home Medications Allergies/Adverse Reactions: Allergies Allergy/AdvReac Type Severity Reaction Status Date / Time No Known Allergies Allergy Verified 11/13/17 07:59 Home Medications: Home Medications Pantoprazole TAB (NF) [Protonix TAB (NF)] 20 mg PO DAILY 11/13/17 [History Confirmed 11/13/17] Sertraline HCl [Zoloft] 50 mg PO DAILY 11/13/17 [History Confirmed 11/13/17] PMH/Surg Hx/FS Hx/Imm Hx Previously Healthy: Yes Other History Of: Negative For: HIV, Hepatitis B, Hepatitis C - Surgical History Surgical History: None Surgery Procedure, Year, and Place: None - Family History Known Family History: Negative: Cardiac Disease, Hypertension, Diabetes - Social History Alcohol Use: None Substance Use Type: None Smoking Status (MU): Former Smoker Type: Cigarettes Amount Used/How Often: >1/2 ppd on the patch now When Did the Patient Quit Smoking/Using Tobacco: 04/02/16 Household Exposure Type: Cigarettes Review of Systems Constitutional: Negative Skin: Other - see hpi Eyes: Negative ENT: Negative Respiratory: Negative Cardiovascular: Negative Gastrointestinal: Negative Genitourinary: Negative Motor: Other - see hpi Neurovascular: Other - see hpi Musculoskeletal: Other: - see hpi Neurological: Negative Psychological: Negative Is Patient Immunocompromised?: No All Other Systems Reviewed And Are Negative: Yes Physical Exam Triage Information Reviewed: Yes Appearance: Well-Nourished Vital Signs: Initial Vital Signs Temp 98.4 F 11/13/17 07:59 Pulse 78 11/13/17 07:59 Resp 18 11/13/17 07:59 BP 121/66 11/13/17 07:59 Pulse Ox 99 11/13/17 07:59 Vital Signs Reviewed: Yes Eye Exam: Normal ENT Exam: Normal Neck exam: Normal - no c/os Respiratory Exam: Normal - no tachypnea, no dyspnea. RR normal. Cardiovascular Exam: Normal - HR normal. Nondiaphoretic. Abdominal Exam: Normal - no c/o Musculoskeletal Exam: Other - distal R/u 2+ equal. CR x 5 digits good. Distal sens + present LT x 5 digits. Able to straighten elbow. Dorsal forearm with approx 4.5cm L x 3.5cm W swelling and tenderness. Nonfluctuant. Tender to pressure. Neurological Exam: Normal Psychological Exam: Normal Skin Exam: Normal - no skin discoloration, no visible or reported rash. Hand/Wrist Course/Dx - Course Course Of Treatment: Reviewed xray results with pt. Shauna coa / tx plan. Questions as posed answered to the best of my ability. Diff dx inflamm / infectious / ganglion cyst / rheumatological - Differential Dx/Diagnosis Provider Diagnoses: R forearm jostin, swelling, and arthralgia Discharge - Sign-Out/Discharge Documenting (check all that apply): Patient Departure - Discharge Plan Condition: Stable Disposition: HOME Prescriptions: Naproxen [Naproxen 500 mg tab] 500 mg PO Q12H PRN #30 tablet.dr VILLALTA Reason: Pain Patient Education Materials: Arthralgia (ED) Referrals: Kourtney Devlin MD [Primary Care Provider] - Brenden Cazares MD [Medical Doctor] - Additional Instructions: Splint / sling as needed for comfort. Elevate your arm as much as possible. Follow up with your primary care physician, per routine, in the next 1-2 weeks. Ultrasound Right forearm tomorrow as scheduled by your doctor. Follow up with orthopedic doctor (Dr. Cazares), call today for appointment approx 1 week. Seek medical attention for worse or new problems. - Billing Disposition and Condition Condition: STABLE Disposition: Home
--- NOTE | 2017-11-13 08:55 | RAD ---
INDICATION: Progressive right dorsal arm and wrist pain without a history of trauma TECHNIQUE: 2 views of the right forearm and 3 views of the right wrist were obtained. FINDINGS: The bones are normal alignment. Joint spaces appear maintained. No fracture is seen. IMPRESSION: Normal radiographs of the right wrist and forearm. If the patient's symptoms persist, follow-up imaging is recommended.
[2017-11-13 13:22] LABS: ABS Basophils 0.1 10^3/ul (0-0.2); ABS Eosinophils 0.4 10^3/ul (0-0.6); ABS Monocytes 0.7 10^3/ul (0-0.8); ABS Neutrophils 9.1 10^3/ul (1.5-7.7); ABS Nucleated RBC 0 10^3/ul; Eosinophil % 2.6 % (0-6); Hematocrit 39 % (35-47); Hemoglobin 13.3 g/dl (12.0-16.0); Lymphocyte % 22.9 % (25-47); Mean Corpuscular HGB Conc 34 g/dl (31-36); Mean Corpuscular Hemoglobin 28 pg (27-31); Mean Corpuscular Volume 81 fL (80-97); Mean Platelet Volume 8.4 um3 (7.4-10.4); Nucleated Red Blood Cells % 0; Platelet Count 343 10^3/ul (150-450); Red Blood Count 4.85 10^6/ul (4.00-5.40); Red Cell Distribution Width 14 % (10.5-15); White Blood Count 13.3 10^3/ul (3.5-10.8)
--- NOTE | 2017-11-14 12:19 | ED ---
Progress - Progress Note Progress Note: WBC 13K, CRP 10 Course/Dx - Course Course Of Treatment: NURSING TO CALL PATIENT. NEED US REPORT FROM TODAY . IF THERE IS AN ABSCESS OR IF THE PATIENT FEELS ILL OR HAS A FEVER, THE PATIENT NEEDS TO BE STARTED ON AN ATIBIOTIC AND HAVE CLOSE FOLLOW UP WITH EITHER HER PMD OR HERE. Discharge - Sign-Out/Discharge Documenting (check all that apply): Patient Departure - Discharge Plan Condition: Stable Disposition: HOME Prescriptions: Naproxen [Naproxen 500 mg tab] 500 mg PO Q12H PRN #30 tablet.dr VILLALTA Reason: Pain Forms: *Work Release Referrals: Kourtney Devlin MD [Primary Care Provider] - Brenden Cazares MD [Medical Doctor] - Additional Instructions: Splint / sling as needed for comfort. Elevate your arm as much as possible. Follow up with your primary care physician, per routine, in the next 1-2 weeks. Ultrasound Right forearm tomorrow as scheduled by your doctor. Follow up with orthopedic doctor (Dr. Cazares), call today for appointment approx 1 week. Seek medical attention for worse or new problems. - Billing Disposition and Condition Condition: STABLE Disposition: Home
--- NOTE | 2017-11-14 16:12 | UC ---
- Progress Note Progress Note: 27-year-old female seen at this facility by Dr. Khan on 11/13/2017 with several day history of right dorsal wrist and forearm and elbow pain. Lab work reviewed earlier demonstrated an elevated white blood cell count of 13 and an elevated CRP of 10. See note from Dr. Morrell. Patient did have an ultrasound performed today which was reviewed and was negative. She also has a Lyme titer drawn which shows a positive serology however the IgG results are still pending. There is no documentation of a tick bite or concern for Lyme disease other than for the Lyme titer which was ordered. We will wait on treating with doxycycline pending the IgG results. Discharge - Sign-Out/Discharge Documenting (check all that apply): Patient Departure - Discharge Plan Condition: Stable Disposition: HOME Prescriptions: Naproxen [Naproxen 500 mg tab] 500 mg PO Q12H PRN #30 tablet.dr VILLALTA Reason: Pain Forms: *Work Release Referrals: Kourtney Devlin MD [Primary Care Provider] - Brenden Cazares MD [Medical Doctor] - Additional Instructions: Splint / sling as needed for comfort. Elevate your arm as much as possible. Follow up with your primary care physician, per routine, in the next 1-2 weeks. Ultrasound Right forearm tomorrow as scheduled by your doctor. Follow up with orthopedic doctor (Dr. Cazares), call today for appointment approx 1 week. Seek medical attention for worse or new problems. - Billing Disposition and Condition Condition: STABLE Disposition: Home
--- NOTE | 2017-11-15 18:26 | ED ---
Progress - Progress Note Progress Note: LYME POSITIVE. I SPOKE WITH RUDI ON THE PHONE. HER ARM IS NOT IMPROVED. WILL RX DOXYCYCLINE 100MG PO BID X 14 DAYS. SHE HAS F/U WITH PMD SCHEDULED FOR TOMORROW, 11/16/17 Course/Dx - Diagnoses Provider Diagnoses: Arm pain, Positive Lyme disease serology Discharge - Sign-Out/Discharge Documenting (check all that apply): Patient Departure - Discharge Plan Condition: Stable Disposition: HOME Prescriptions: DOXYcycline CAP(*) [DOXYcycline 100MG CAP(*)] 100 mg PO BID #28 cap Naproxen [Naproxen 500 mg tab] 500 mg PO Q12H PRN #30 tablet.dr VILLALTA Reason: Pain Forms: *Work Release Referrals: Kourtney Devlin MD [Primary Care Provider] - Brenden Cazares MD [Medical Doctor] - Additional Instructions: Splint / sling as needed for comfort. Elevate your arm as much as possible. Follow up with your primary care physician, per routine, in the next 1-2 weeks. Ultrasound Right forearm tomorrow as scheduled by your doctor. Follow up with orthopedic doctor (Dr. Cazares), call today for appointment approx 1 week. Seek medical attention for worse or new problems. - Billing Disposition and Condition Condition: STABLE Disposition: Home
== END 2017-11-13 09:45 | disposition home or self-care (01) ==
LOC: UCEAST 07:53
DX: M79.631 Pain in right forearm (principal); M79.89 Other specified soft tissue disorders; Z87.891 Personal history of nicotine dependence
CPT/HCPCS: 36415; 85025; 85652; 86140; 86617; 86618; 99213; G0463

== ENCOUNTER 2018-03-19 17:12 | Emergency (ER) | payer BC ==
[2018-03-19 17:24] VITALS: BP 127/77
--- NOTE | 2018-03-19 17:57 | ED ---
Upper Extremity Pain - HPI Summary HPI Summary: [id number] patient presents with right wrist and dorsal forearm pain, stiffness and soreness over the past few months. Initially started as a "lump" over her Rt dorsal wrist then it migrated to her forearm. She denies any acute injury or repetitive motion but does admit to a history of playing softball as well as pitching. She's tried ice alternating with heat and ibuprofen as well as massage. These seemed to help temporarily however her symptoms continue to come back. When her forearm is most tight and painful she develops paresthesias in her fingers however this is short-lived. She also admits to pain with writing when this is acting up. Denies fever, chills, elbow pain, arm pain, shoulder pain, neck pain. Denies use of fluoroquinolones, steroids, statins. - History of Current Complaint Chief Complaint: UCUpperExtremity Stated Complaint: WRIST PAIN Time Seen by Provider: 03/19/18 17:40 Hx Obtained From: Patient Hx Last Menstrual Period: 03/15/18 - Allergies/Home Medications Allergies/Adverse Reactions: Allergies Allergy/AdvReac Type Severity Reaction Status Date / Time No Known Allergies Allergy Verified 03/19/18 17:24 PMH/Surg Hx/FS Hx/Imm Hx Previously Healthy: Yes Endocrine/Hematology History: Reports: Hx Diabetes - pre-diabetes Denies: Hx Thyroid Disease Cardiovascular History: Denies: Hx Congestive Heart Failure, Hx Deep Vein Thrombosis, Hx Hypertension , Hx Myocardial Infarction, Hx Pacemaker/ICD Respiratory History: Denies: Hx Asthma, Hx Chronic Obstructive Pulmonary Disease (COPD), Hx Lung Cancer GI History: Denies: Hx Gall Bladder Disease, Hx Gastrointestinal Bleed, Hx Ulcer, Hx Urosepsis History: Reports: Other Problems/Disorders - PCOS Denies: Hx Dialysis, Hx Kidney Stones, Hx Renal Disease Neurological History: Denies: Hx Dementia, Hx Migraine, Hx Seizures, Hx Transient Ischemic Attacks (TIA) Psychiatric History: Denies: Hx Anxiety, Hx Depression, Hx Schizophrenia, Hx Bipolar Disorder - Surgical History Surgery Procedure, Year, and Place: None Infectious Disease History: No Infectious Disease History: Denies: Hx Clostridium Difficile, Hx Hepatitis, Hx Human Immunodeficiency Virus (HIV), Hx of Known/Suspected MRSA, Hx Shingles, Hx Tuberculosis, Hx Known/ Suspected VRE, Hx Known/Suspected VRSA, History Other Infectious Disease, Traveled Outside the [place] in Last 30 Days - Family History Known Family History: Negative: Cardiac Disease, Hypertension, Diabetes - Social History Occupation: Employed Full-time - [employer] Lives: With Family - boyfriend Alcohol Use: Occasionally Hx Substance Use: No Substance Use Type: Reports: None Hx Tobacco Use: Yes Smoking Status (MU): Former Smoker Type: Cigarettes Amount Used/How Often: >1/2 ppd on the patch now Review of Systems Constitutional: Negative Negative: Fever, Chills, Fatigue Positive: no symptoms reported Positive: Arthralgia, Myalgia, Decreased ROM - d/t pain Negative: Bruising Positive: Paresthesia Psychological: Normal All Other Systems Reviewed And Are Negative: Yes Physical Exam Triage Information Reviewed: Yes Vital Signs On Initial Exam: Initial Vitals Temp Pulse Resp BP Pulse Ox 98.2 F 80 18 127/77 100 03/19/18 17:20 03/19/18 17:20 03/19/18 17:20 03/19/18 17:20 03/19/18 17:20 Vital Signs Reviewed: Yes Appearance: Positive: Well-Appearing, No Pain Distress, Obese Skin: Positive: Warm, Skin Color Reflects Adequate Perfusion, Dry - no erythema , no ecchymosis, no lesions over forearm Head/Face: Positive: Normal Head/Face Inspection Eyes: Positive: EOMI ENT: Positive: Hearing grossly normal Respiratory/Lung Sounds: Positive: Breath Sounds Present Cardiovascular: Positive: Pulses are Symmetrical in both Upper and Lower Extremities - no edema Musculoskeletal: Positive: 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 Course/Dx - Diagnoses Provider Diagnoses: Tendinitis of left forearm Discharge - Sign-Out/Discharge Documenting (check all that apply): Patient Departure All imaging exams completed and their final reports reviewed: No Studies - Discharge Plan Condition: Stable Disposition: HOME Patient Education Materials: Tendinitis (ED) Forms: *Work Release Referrals: Kourtney Devlin MD [Primary Care Provider] - Additional Instructions: Rest Heat followed by gentle stretches followed by ice You may also use topical analgesics such as biofreeze, bengay, etc Call OT tomorrow to set up an appointment this week - if they do not accept this as referral, contact your PCP's office to request referral If symptoms worsen, go to the ED [facility] [address] [address] - Billing Disposition and Condition Condition: STABLE Disposition: Home
== END 2018-03-19 18:14 | disposition home or self-care (01) ==
LOC: UCEAST 17:12
DX: M77.9 Enthesopathy, unspecified (principal); R73.03 Prediabetes; Z87.891 Personal history of nicotine dependence
CPT/HCPCS: 99211; G0463

== ENCOUNTER 2018-07-31 14:04 | Emergency (ER) | payer BC ==
--- NOTE | 2018-07-31 14:22 | UC ---
Ear Complaint HPI - HPI Summary HPI Summary: 27 yo female presents with LEFT ear pain since yesterday. She tells me that last week she had sinus congestion and a dry cough, but these symptoms improved. Last night she developed left ear pain and decreased hearing that has continued into today. She denies fever, chills, sore throat, cough. - History of Current Complaint Stated Complaint: EAR PAIN Time Seen by Provider: 07/31/18 14:21 Hx Obtained From: Patient Hx Last Menstrual Period: 03/15/18 Onset/Duration: Sudden Onset Severity Initially: Moderate Severity Currently: Moderate Pain Intensity: 5 Pain Scale Used: 0-10 Numeric - Allergies/Home Medications Allergies/Adverse Reactions: Allergies Allergy/AdvReac Type Severity Reaction Status Date / Time No Known Allergies Allergy Verified 03/19/18 17:24 PMH/Surg Hx/FS Hx/Imm Hx GI/ History: Gastroesophageal Reflux Psychological History: Anxiety, Depression Other History Of: Negative For: HIV, Hepatitis B, Hepatitis C - Surgical History Surgical History: None Surgery Procedure, Year, and Place: None - Family History Known Family History: Negative: Cardiac Disease, Hypertension, Diabetes - Social History Lives: With Family Alcohol Use: Occasionally Substance Use Type: None Smoking Status (MU): Former Smoker Type: Cigarettes Amount Used/How Often: >1/2 ppd on the patch now When Did the Patient Quit Smoking/Using Tobacco: 04/02/16 Household Exposure Type: Cigarettes Review of Systems All Other Systems Reviewed And Are Negative: Yes Constitutional: Positive: Negative Skin: Positive: Negative Eyes: Positive: Negative ENT: Positive: Ear Ache Respiratory: Positive: Negative Cardiovascular: Positive: Negative Gastrointestinal: Positive: Negative Neurovascular: Positive: Negative Neurological: Positive: Negative Psychological: Positive: Negative Physical Exam - Summary Physical Exam Summary: GENERAL: NAD. WDWN. No pain distress. SKIN: No rashes, sores, lesions, or open wounds. HEENT: Head: AT/NC Eyes: EOM intact. Conjunctiva clear without inflammation or discharge. Ears: Hearing grossly normal. LEFT TM with mild erythema and bulging. No canal edema or drainage. Nose: Nasal mucosa pink and moist. NTTP maxillary and frontal sinus. Throat: Posterior oropharynx without exudates, erythema, or tonsillar enlargement. Uvula midline. NECK: Supple. Nontender. No lymphadenopathy. CHEST: CTAB. No r/r/w. No accessory muscle use. Breathing comfortably and in no distress. CV: RRR. Without m/r/g. Pulses intact. NEURO: Alert. PSYCH: Age appropriate behavior. Triage Information Reviewed: Yes Vital Signs: Vital Signs: Temp Pulse Resp BP Pulse Ox 99.0 F 85 84 124/63 99 07/31/18 14:21 07/31/18 14:21 07/31/18 14:21 07/31/18 14:21 07/31/18 14:21 Vital Signs Reviewed: Yes Ear Complaint Course/Dx - Course Course Of Treatment: Left otitis media - Differential Dx/Diagnosis Provider Diagnosis: Otitis media Discharge - Sign-Out/Discharge Documenting (check all that apply): Patient Departure All imaging exams completed and their final reports reviewed: No Studies - Discharge Plan Condition: Stable Disposition: HOME Prescriptions: Amoxicillin/Clavulanate TAB* [Augmentin TAB 875*] 875 mg PO BID #14 tab Patient Education Materials: Ear Infection (ED) Referrals: Kourtney Devlin MD [Primary Care Provider] - Additional Instructions: If you develop a fever, shortness of breath, chest pain, new or worsening symptoms - please call your PCP or go to the ED. - Billing Disposition and Condition Condition: STABLE Disposition: Home
[2018-07-31 14:26] VITALS: BP 124/63
== END 2018-07-31 14:50 | disposition home or self-care (01) ==
LOC: UCEAST 14:04
DX: H66.92 Otitis media, unspecified, left ear (principal); K21.9 Gastro-esophageal reflux disease without esophagitis; F41.9 Anxiety disorder, unspecified; F32.9 Major depressive disorder, single episode, unspecified; Z87.891 Personal history of nicotine dependence
CPT/HCPCS: 99212; G0463

== ENCOUNTER 2018-08-05 15:17 | Emergency (ER) | payer BC ==
[2018-08-05 15:44] VITALS: BP 116/71
--- NOTE | 2018-08-05 15:53 | UC ---
Ear Complaint HPI - HPI Summary HPI Summary: 28 y/o female presents to the urgent care c/o left side sinus congestion, pain and left ear pain for the past week. Pt reports she was seen here at the clinic on 07/31/2018 and Dx left otitis media and Rx Augmentin PO/ Pt has been taking antibiotic w/o any improvement. Yesterday she started w/ RT ear pain. Ujventino is 5/ 10 today LF ear> RT. She took Tylenol and Ibuprofen PO for pain. Pt states sinus congestion w/ green nasal discharge associated w/ decrease hearing. Pt thinks Augmenting has been ineffective since not improvement. Pt denies fever, dizziness, SOB, chest pain, cough, abdominal pain, N/V/D. - History of Current Complaint Chief Complaint: UCEar Stated Complaint: EAR COMPLAINT Time Seen by Provider: 08/05/18 15:52 Hx Obtained From: Patient Hx Last Menstrual Period: [id number] Onset/Duration: Gradual Onset, Lasting Weeks - 1 week, Still Present Severity Initially: Mild Severity Currently: Moderate Pain Intensity: 5 - left ear Pain Scale Used: 0-10 Numeric Aggravating Factors: Other - touch ear Alleviating Factors: OTC Meds - ibuprofen PO Associated Signs/Symptoms: Positive: Hearing Loss, URI Symptoms - Allergies/Home Medications Allergies/Adverse Reactions: Allergies Allergy/AdvReac Type Severity Reaction Status Date / Time No Known Allergies Allergy Verified 08/05/18 15:44 Home Medications: Home Medications Acetaminophen TAB* [Tylenol TAB*] 650 mg PO Q6H PRN 08/05/18 [History Confirmed 08/05/18] Ibuprofen TAB* [Motrin TAB* 400 MG] 400 mg PO Q6H PRN 08/05/18 [History Confirmed 08/05/18] PMH/Surg Hx/FS Hx/Imm Hx Previously Healthy: Yes - Pt denies PMHX Other History Of: Negative For: HIV, Hepatitis B, Hepatitis C - Surgical History Surgical History: None Surgery Procedure, Year, and Place: None - Family History Known Family History: Positive: Hypertension, Diabetes Family History: dyslipidemia - Social History Occupation: Employed Full-time Lives: With Family Alcohol Use: Rare Substance Use Type: None Smoking Status (MU): Former Smoker Type: Cigarettes Amount Used/How Often: >1/2 ppd on the patch now When Did the Patient Quit Smoking/Using Tobacco: 04/02/16 Household Exposure Type: Cigarettes Review of Systems All Other Systems Reviewed And Are Negative: Yes Constitutional: Positive: Negative Skin: Positive: Negative Eyes: Positive: Negative ENT: Positive: Ear Ache - B/L ear pain LF>RT, Nasal Discharge - yellowish, Sinus Congestion, Sinus Pain/Tenderness - left side Respiratory: Positive: Negative Cardiovascular: Positive: Negative Gastrointestinal: Positive: Negative Genitourinary: Positive: Negative Motor: Positive: Negative Neurovascular: Positive: Negative Musculoskeletal: Positive: Negative Neurological: Positive: Headache Psychological: Positive: Negative Is Patient Immunocompromised?: No Physical Exam - Summary Physical Exam Summary: Vitals: reviewed General: Well developed, well-nourished female patient with NAD. Head and face: Normocephalic and atraumatic, Positive tenderness over the frontal and maxillary sinuses.. Eyes: PERRLA, EOMI x 2. Normal conjunctiva. No eye discharge. Ears: no pre- or postauricular lymphadenopathy or erythema; RT external ear canal clear, Rt TM WNL, LF external ear canal clear and LF injected w/ erythema nad mild yellowish drainage. No perforation. Nose: edematous and erythematous nasal mucosa with with yellowish discharge and erythematous mucosa. Pharynx with erythema, no exudate. Neck: Supple, no JVD, no carotid bruits and no lymphadenopathy. Lungs: clear, no rales, no rhonchi, no wheezes. CVS: RRR, S1 and S2 present no murmurs or gallops appreciated. Abdomen: soft nontender with positive bowel sounds. Extremities: no edema noted. Neuro: WNL. Skin: warm and dry Triage Information Reviewed: Yes Vital Signs: Initial Vital Signs Temp 98.4 F 08/05/18 15:41 Pulse 84 08/05/18 15:41 Resp 16 08/05/18 15:41 BP 116/71 08/05/18 15:41 Pulse Ox 98 08/05/18 15:41 Ear Complaint Course/Dx - Course Course Of Treatment: 28 y/o female presents to the urgent care c/o left side sinus congestion, pain and left ear pain for the past week. Pt reports she was seen here at the clinic on 07/31/2018 and Dx left otitis media and Rx Augmentin PO/ Pt has been taking antibiotic w/o any improvement. Yesterday she started w/ RT ear pain. Juventino is 5/ 10 today LF ear> RT. She took Tylenol and Ibuprofen PO for pain. Pt states sinus congestion w/ green nasal discharge associated w/ decrease hearing. Pt thinks Augmenting has been ineffective since not improvement. Pt denies fever, dizziness, SOB, chest pain, cough, abdominal pain, N/V/D. Hx obtained. Pt w/ acute bacterial sinusitis and left otitis media on examination. Pt with 1 week of symptoms getting worse despite taking Augmentin. Pt Rx Doxycycline PO and flonase nasal spray. Advised to continue w/ Ibuprofen PO to alleviate otalgia. Discharge instructions explained to Pt. Advised to f/u w/ PCP or ENT Dr Robles if symptoms do not improve.Pt understood and agreed with plan of care. - Differential Dx/Diagnosis Differential Diagnosis/HQI/PQRI: Bronchitis, Cerumen Impaction, Otitis Externa, Otitis Media, Perforated TM, URI, Other - sinusitis Provider Diagnosis: Acute sinusitis, Left otitis media Discharge - Sign-Out/Discharge Documenting (check all that apply): Patient Departure - D/C home All imaging exams completed and their final reports reviewed: No Studies - Discharge Plan Condition: Stable Disposition: HOME Prescriptions: DOXYcycline CAP(*) [DOXYcycline 100MG CAP(*)] 100 mg PO BID #20 cap Fluticasone NASAL SPRAY 50MCG* [Flonase NASAL SPRAY 50MCG*] 2 spray BOTH NARES DAILY #1 btl Patient Education Materials: Sinusitis (ED), Ear Infection (ED) Referrals: Kourtney Devlin MD [Primary Care Provider] - 3 Days Neftaly Robles MD [Medical Doctor] - If Needed Additional Instructions: 1- Please increase fluid intake and rest. Stop taking Augmentin since it is innefective and start taking Doxycycline full course of antibiotic to avoid resistance. Please take yogurts w/ probiotics or Culturelle to protect GI system 2-Use Flonase as directed to help drain fluid. Also buy saline drops to clear sinuses 3- Continue taking Ibuprofen PO q6-8hrs prn after meals to alleviate otalgia. 4-If symptoms do not improve please f/u w/ your PCP or ENT DR Robles for further management and treatment - Billing Disposition and Condition Condition: STABLE Disposition: Home
== END 2018-08-05 16:35 | disposition home or self-care (01) ==
LOC: UCEAST 15:17
DX: J01.90 Acute sinusitis, unspecified (principal); H66.92 Otitis media, unspecified, left ear; Z87.891 Personal history of nicotine dependence
CPT/HCPCS: 99212; G0463

== ENCOUNTER 2019-01-02 16:11 | Emergency (ER) | payer BC ==
[2019-01-02 16:29] VITALS: BP 118/62
--- NOTE | 2019-01-02 16:29 | UC ---
Hand/Wrist HPI - HPI Summary HPI Summary: Patient is a 28yo female presenting with right wrist and hand pain x1 year that is now worsening. She believes it may be a ganglion cyst. Describes the pain as sharp and throbbing. Notes that a lump on the dorsal aspect of her wrist waxes and wanes. She is right handed. Notes pain sometimes radiates up to her elbow. Notes weakness in that hand. Denies any injury or repetitive movements. Notes swelling. Denies ecchymosis. Notes she had an ultrasound in the past that was negative. States she uses ice and braces at home that do not seem to be helping. Patient is hoping she can get an ortho referral today. - History Of Current Complaint Chief Complaint: UCUpperExtremity Stated Complaint: RT WRIST PAIN Time Seen by Provider: 01/02/19 16:29 Hx Obtained From: Patient Hx Last Menstrual Period: 12/20/18 Severity Currently: Severe Pain Intensity: 10 Pain Scale Used: 0-10 Numeric Aggravating Factor(s): Movement, Flexion, Extension Alleviating Factor(s): Nothing - Allergies/Home Medications Allergies/Adverse Reactions: Allergies Allergy/AdvReac Type Severity Reaction Status Date / Time No Known Allergies Allergy Verified 01/02/19 16:24 Home Medications: Home Medications raNITIdine HCl [Ranitidine HCl] 150 mg PO BID 01/02/19 [History Confirmed ] PMH/Surg Hx/FS Hx/Imm Hx Other History Of: Negative For: HIV, Hepatitis B, Hepatitis C - Surgical History Surgical History: None Surgery Procedure, Year, and Place: None - Family History Known Family History: Positive: Hypertension, Diabetes, Non-Contributory Negative: Cardiac Disease Family History: dyslipidemia - Social History Alcohol Use: Rare Substance Use Type: None Smoking Status (MU): Former Smoker Type: Cigarettes Amount Used/How Often: >1/2 ppd on the patch now When Did the Patient Quit Smoking/Using Tobacco: 04/02/16 Household Exposure Type: Cigarettes Review of Systems All Other Systems Reviewed And Are Negative: No Constitutional: Positive: Negative. Negative: Fever, Chills Skin: Positive: Negative. Negative: Rash, Bruising Respiratory: Positive: Negative Cardiovascular: Positive: Negative Motor: Positive: Negative Neurovascular: Positive: Negative. Negative: Decreased Sensation Musculoskeletal: Positive: Arthralgia, Decreased ROM, Edema Neurological: Negative: Paresthesia, Numbness Physical Exam Triage Information Reviewed: Yes Appearance: Well-Appearing, No Pain Distress, Well-Nourished Vital Signs: Initial Vital Signs Temp 98.4 F 01/02/19 16:26 Pulse 80 01/02/19 16:26 Resp 18 01/02/19 16:26 BP 118/62 01/02/19 16:26 Pulse Ox 98 01/02/19 16:26 Vital Signs Reviewed: Yes Eyes: Positive: Conjunctiva Clear ENT: Positive: Hearing grossly normal Neck: Positive: Supple Respiratory: Positive: No respiratory distress Cardiovascular: Positive: Pulses Normal, Brisk Capillary Refill Musculoskeletal: Positive: No Edema, Strength Limited @ - right hand, ROM Limited @ - right wrist flexion and extension Neurological: Positive: Alert Psychological: Positive: Age Appropriate Behavior Skin Exam: Normal Skin: Positive: Other - no ecchymosis, erythema, or edema noted. no lump or ganglion cyst noted on exam Hand/Wrist Course/Dx - Course Course Of Treatment: Discussed with patient that she will need to follow up with orthopedics for further evaluation of her wrist pain. No xrays taken, as she denied injury or thinking anything could be broken. Instructed patient to continue to rest, ice, elevate, and use her wrist braces that she has at home until she can follow up. She may also use ibuprofen and tylenol as directed for pain relief. Patient voiced understanding and agreed to treatment plan. - Differential Dx/Diagnosis Provider Diagnosis: Chronic pain of right wrist Discharge ED - Sign-Out/Discharge Documenting (check all that apply): Patient Departure All imaging exams completed and their final reports reviewed: No Studies - Discharge Plan Condition: Stable Disposition: HOME Referrals: Kourtney Devlin MD [Primary Care Provider] - Brenden Cazares MD [Medical Doctor] - As Soon As Possible Additional Instructions: As discussed, use rest, ice, elevation, and your braces at home to help alleviate your symptoms. You may take ibuprofen and tylenol as directed for pain relief. Follow up with the orthopedic referral listed below for further evaluation. - Billing Disposition and Condition Condition: STABLE Disposition: Home
== END 2019-01-02 16:40 | disposition home or self-care (01) ==
LOC: UCEAST 16:11
DX: G89.29 Other chronic pain (principal); M25.531 Pain in right wrist; Z87.891 Personal history of nicotine dependence
CPT/HCPCS: 99211; G0463